=== PATIENT | female | born 1945 | race Caucasian/White ===

== ENCOUNTER → 2018-08-12 | Outpatient (CLI) | payer OTHER ==
[~2018-08-12] MED LIST: ALBU2.5V5 NEB; ALBU2.5V8 INH; ASCO500T2 PO; BREO ELLIPTA 21 EACH IH; CALC600T4 PO; CYAN-25 PO; CYCL10TA2 PO; DICL50TA2 PO; DICY10CA3 PO; DOCU50CA9 PO; ERGO500027 PO; ESTR2TAB PO; HYDR-3164 PO; LACT1CAP29 PO; LEVO75TA5 PO; LORA0.5T PO; OXYC1TAB15 PO; POTA10TA12 PO; PROC10TA57 PO; RANI-376 PO; SIME125C PO; TRIA1TAB3 PO; ZOLP10TA PO
--- NOTE | 2018-08-12 17:36 | RAD ---
EXAM: Lateral neutral, lateral flexion and lateral extension views of the lumbar spine of the lumbar spine DATE: 08/12/2018 3:26 PM INDICATION: SPONDYLOLISTHESIS, LOW BACK PAIN COMPARISON: No Prior FINDINGS: For the purposes of this report, there are 5 lumbar-type vertebral bodies, although this is not confirmed as no AP view is available. On the neutral view there is approximately 7 mm anterolisthesis of L4 on L5. On the minimal range of motion on the flexion/extension images, there is 7 mm anterolisthesis of L4 on L5 on the extension image and 8 mm anterolisthesis of L4 on L5 on the flexion image. Straightening of the normal lumbar lordosis. Severe L2-3 intervertebral disc height loss with associated endplate sclerosis and osteophytes. Moderate to severe disc height loss at L3-4, L4-5 and L5-S1. Atherosclerotic vascular calcifications are seen. IMPRESSION: Anterolisthesis of L4 on L5 without dynamic instability on the minimal range of motion provided. Electronically signed by: Otis Ly MD (08/12/2018 5:31 PM) [facility] [place]
== END | disposition home or self-care (01) ==
LOC: RAD 14:59
PROVIDERS: ATTEND Neurological Surgery
DX: M43.16 Spondylolisthesis, lumbar region (principal); M25.78 Osteophyte, vertebrae; I70.0 Atherosclerosis of aorta
CPT/HCPCS: 72100

== ENCOUNTER → 2018-09-01 | Outpatient (CLI) | payer OTHER ==
[~2018-09-01] MED LIST changes: -CYAN-25 PO; +CYAN10005 PO; -OXYC1TAB15 PO; -RANI-376 PO; +RANI150T21 PO
--- NOTE | 2018-09-01 16:27 | EKG ---
[facility] [address] [place] [address] Test Date: 2018-09-01 Test Time: 16:10:01 Pat Name: JOHNATHON CHAWLA Department: Patient ID: [id number] Room: Gender: F Monitoring And Evaluation Advisor: [facility] : 1945 Requested By: AUNDREA LAZARO Order Number: [id number] Reading MD: Philipp Rubio MD Measurements Intervals [place] Rate: 97 P: 47 FL: 140 QRS: -10 QRSD: 74 T: 44 QT: 342 QTc: 438 Interpretive Statements SINUS RHYTHM Electronically Signed On 09-02-2018 10:48:49 [employer] by Philipp Rubio MD
== END | disposition home or self-care (01) ==
LOC: SURGPAT 13:34
PROVIDERS: ATTEND Neurological Surgery
DX: Z01.818 Encounter for other preprocedural examination (principal); M48.062 Spinal stenosis, lumbar region with neurogenic claudication; M54.16 Radiculopathy, lumbar region; M43.16 Spondylolisthesis, lumbar region
CPT/HCPCS: 36415; 87641; 93005

== ENCOUNTER 2018-10-09 07:38 | Day surgery (SDC) | payer OTHER ==
--- NOTE | 2018-10-07 12:15 | PREOP HP ---
DATE OF SERVICE: 10/09/2018 HISTORY OF PRESENT ILLNESS: The patient is a pleasant 72-year-old who is having difficulty with low back pain which can become very severe and increased with standing and activities. Along with this, she notices pain in the left buttock and left hip region, which radiated down the posterolateral thigh and anterolateral leg on the left. This problem has been present for years, but it has been worsening significantly. She says the pain can reach a 10/10. Standing, walking and activities increase her pain. Sitting helps give her relief. She has been taking [place] and Flexeril. She has seen a chiropractor in the past as well as had epidural steroid injections on 2 occasions, most recently in 2017. PAST MEDICAL HISTORY: Anemia, arthritis, asthma, COPD, cold sores and fever blisters, emphysema, headaches and migraines, head and neck injury, hypertension, kidney disease, lung disease, RA, shingles, stomach and intestinal disease, tonsillitis, trauma, fibromyalgia. PAST SURGICAL HISTORY: Tonsillectomy in 1961, breast augmentation in 1977, child in 1967 and 1969, colonoscopy in 2007 and hysterectomy in 2008. FAMILY HISTORY: Alzheimer disease, aneurysm, diabetes, heart problems and disease, hypertension. SOCIAL HISTORY: . Retired. Rarely exercises. Denies substance abuse. Denies tobacco use. Drinks alcohol occasionally. Drinks coffee, tea and soda. ALLERGIES: PENICILLIN AND SULFA. CURRENT MEDICATIONS: Levothyroxine, triamterene, estradiol, diclofenac, vitamin D, potassium chloride, Zantac, Breo Ellipta, lorazepam, [place], cyclobenzaprine, Ambien, Compazine, vitamin C, vitamin B12, calcium, Gas-X, stool softener, fish oil, probiotic. REVIEW OF SYSTEMS: A 12-point review of systems was obtained and is noncontributory except for that mentioned above. PHYSICAL EXAMINATION: NEUROSURGERY EXAMINATION: GENERAL APPEARANCE: Alert, pleasant, no acute distress. HEAD: Normocephalic and atraumatic. SKIN: Warm and dry. MUSCULOSKELETAL: Lumbar paraspinal muscle bulk is normal, restricted range of motion of the lumbar spine, hwnd-bo-avbqjsal tenderness of lower lumbar spine with palpation, normal range of motion of the lower extremities bilaterally. EXTREMITIES: No clubbing, cyanosis or edema. NEUROLOGIC: Alert and oriented x 3. Normal recent and remote memory. Muscle strength 5/5 in bilateral lower extremities. Sensory was intact to light touch in bilateral lower extremities. Reflexes are present and symmetric in the lower extremities bilaterally, negative straight leg raising bilaterally, normal gait. IMAGING: I reviewed a lumbar MRI scan. On that study, there is grade 1 anterolisthesis at L4-L5 along with moderately severe stenosis at that level. On standing and flexion, extension plain films, the grade 1 spondylolisthesis is increased, but does not show dynamic motion on flexion and extension. ASSESSMENT/ PLAN: The patient has a grade 1 anterolisthesis at L4-L5 along with severe stenosis. She will require a wide laminectomy with removal of at least 50% or more of the facet to fully decompress the canal. Based on the large grade 1 anterolisthesis, even plane standing flexion and extension x-rays would combine her decompression with instrumented fusion as well as anterior diskectomy and interbody fusion. I did discuss this with her including the technique, rationale and risks as well as expected postoperative course. She understands. She would like to go ahead. We will make the arrangements. AUNDREA LAZARO MD DR: JERONIMO/sina JOB#: [id number] / [id number] [place]
[~2018-10-09] VITALS: Ht 160 cm; Wt 72.6 kg
[~2018-10-09 07:38] MED LIST changes: +BACITRACIN 50,000 UNIT in IV NORMAL SALINE 1000ML BAG 1,000 ML IR ONE; +BUPIVAC MPF-EPI 0.5%-1:200000 30 ML VIAL. ONE; +GELATIN SPONGE SIZE 100. ONE; +HYDROmorphone 2 MG/ML VIAL IV PRN; +IV RINGERS,LACTATED 1000ML 1,000 ML IV SCH; +KETOROLAC 60 MG/2 ML INJ FOR OR. ONE; +LIDOCAINE 1% PF 2 ML VIAL. ID PRN; +MORPHINE SULFATE 2 MG/ML VIAL. IV PRN; +ONDANSETRON PF 4 MG/2 ML VIAL. IV PRN; +PROCHLORPERAZINE 10 MG/2 ML VIAL. IV PRN; +RANI-376 PO; -RANI150T21 PO; +THROMBIN TOPICAL 20,000 UNIT SPRAY.SYRN KIT TP ONE; +VANCOMYCIN 1GM IVPB FOR OMNI 250 ML IV PRN; +fentaNYL PF VIAL 100 MCG/2 ML VIAL IV PRN
[2018-10-09] MEDS ORDERED: PROPOFOL 20 ML IV ONE (07:47)
[2018-10-09] MEDS ORDERED: ONDANSETRON PF 4 MG/2 ML VIAL. ONE (07:47)
[2018-10-09] MEDS ORDERED: LIDOCAINE 2% PF 5 ML VIAL. ONE (07:47)
[2018-10-09] MEDS ORDERED: PROPOFOL 0 ML IV ONE (07:47)
[2018-10-09] MEDS ORDERED: FAMOTIDINE 20 MG/2 ML VIAL ONE (07:47)
[2018-10-09] MEDS ORDERED: DEXAMETHASONE SOD PHOS 20 MG/5 ML VIAL. ONE (07:47)
[2018-10-09] MEDS ORDERED: diphenhydrAMINE 50 MG/ML VIAL ONE (08:25)
[2018-10-09] MEDS ORDERED: KETAMINE HCL IN NACL, ISO-OSM 50 MG/5 ML SYRINGE ONE (08:30)
[2018-10-09] MEDS ORDERED: GLYCOPYRROLATE 1 MG/5 ML VIAL. ONE (08:33)
[2018-10-09] MEDS ORDERED: NEOSTIGMINE 10 MG/10 ML VIAL. ONE (08:33)
[2018-10-09 08:40] VITALS: BP 195/80
[2018-10-09] MEDS ORDERED: DESFLURANE 16 TO 30 MINUTES. IH ONE (08:41)
[2018-10-09 09:01] LABS: BASO # 0.2 x10^3/uL (0.0-0.2); BASO % 1 % (0-3); EOS # 0.5 x10^3/uL (0.0-0.7); EOS % 4 % (0-3); HEMATOCRIT 35.7 % (36.0-47.0); HEMOGLOBIN 11.9 g/dL (12.0-15.5); LYMPH % 30 % (24-48); MEAN CORPUSCULAR HEMOGLOBIN 29 pg (25-35); MEAN CORPUSCULAR HGB CONC 33 g/dL (31-37); MEAN CORPUSCULAR VOLUME 89 fL (79-100); MONO # 1.8 x10^3/uL (0.0-1.1); MONO % 13 % (0-9); NEUT # 7.1 x10^3uL (1.8-7.7); NEUT % 52 % (31-73); PLATELET COUNT 355 x10^3/uL (140-400); RED BLOOD COUNT 4.03 x10^6/uL (3.50-5.40); WHITE BLOOD COUNT 13.5 x10^3/uL (4.0-11.0)
[2018-10-09] MEDS ORDERED: REMIFENTANIL 2 MG VIAL. IV ONE (09:28)
[2018-10-09] MEDS ORDERED: MIDAZOLAM HCL/PF 2 MG/2 ML VIAL. ONE (09:28)
[2018-10-09] MEDS ORDERED: fentaNYL PF VIAL 100 MCG/2 ML VIAL ONE (09:28)
[2018-10-09] MEDS ORDERED: ROCURONIUM 50 MG/5 ML VIAL. ONE (09:28)
[2018-10-09] MEDS ORDERED: MIDAZOLAM HCL/PF 2 MG/2 ML VIAL. IV ONE (09:30)
--- NOTE | 2018-10-09 09:30 | RAD ---
CT of the lumbar spine without contrast, 10/09/2018: HISTORY: Lumbar stenosis, neurogenic claudication, BrainLab study Noncontrast scans were obtained with multiplanar reconstructions produced. The data was transferred to the operating room to aid in the patient's stereotactically guided surgery. The following findings are delineated: 1. There is a mild left convexity lumbar scoliosis. No fracture or destructive bony lesion is seen. 2. At L1-2 the central spinal canal and neural foramina are well-maintained. 3. At L2-3 there is extensive disc space narrowing with endplate sclerosis and marginal spurring. There are degenerative changes involving the facet joints with posterior ligamentous thickening. There is mild posterior disc bulging. The combination of findings is causing mild central spinal stenosis 4. There is moderate degenerative disc disease at L3-4. There is moderate posterior marginal spurring and disc bulging. There is moderate posterior ligamentous thickening related to facet joint arthropathy. The combination of findings is causing moderate central spinal stenosis with the thecal sac measuring 5-6 mm in AP diameter at the midline. There is mild right foraminal stenosis. 4. At L4-5 there is extensive facet joint arthropathy with an associated grade 1 anterolisthesis. There is moderate degenerative disc disease with a vacuum disc phenomena. There is moderate broad-based posterior disc bulging. The combination of findings is causing moderate to severe central spinal stenosis as well as moderate bilateral foraminal encroachment, worse on the left. 5. At L5-S1 there is also severe degenerative disc disease with a vacuum disc phenomena. There is moderate posterior disc bulging and mild marginal spurring which in conjunction with facet joint arthropathy is producing moderate central spinal stenosis and mild to moderate bilateral foraminal encroachment. 6. Moderate aortoiliac calcific plaquing is present. Electronically signed by: Tai Mclean MD (10/09/2018 9:27 AM) [facility]
== END 2018-10-09 10:30 | disposition home or self-care (01) ==
LOC: OPSVCIP 07:38 → OPSVCOP 07:38 → UNDOADMIN 07:38 → EDSTATUS 10:30 → OPSVCOP 10:30
PROVIDERS: ATTEND Neurological Surgery
DX: M48.062 Spinal stenosis, lumbar region with neurogenic claudication (principal); M51.16 Intervertebral disc disorders with radiculopathy, lumbar region; I70.1 Atherosclerosis of renal artery; M41.86 Other forms of scoliosis, lumbar region; Z88.0 Allergy status to penicillin; Z88.2 Allergy status to sulfonamides; Z88.1 Allergy status to other antibiotic agents; Z88.5 Allergy status to narcotic agent; Z91.041 Radiographic dye allergy status; D64.9 Anemia, unspecified; M19.90 Unspecified osteoarthritis, unspecified site; J43.9 Emphysema, unspecified; G43.909 Migraine, unspecified, not intractable, without status migrainosus; M79.7 Fibromyalgia; I10 Essential (primary) hypertension; Z90.710 Acquired absence of both cervix and uterus; Z98.890 Other specified postprocedural states; Z83.3 Family history of diabetes mellitus; Z82.49 Family history of ischemic heart disease and other diseases of the circulatory system; Z82.0 Family history of epilepsy and other diseases of the nervous system; Z72.89 Other problems related to lifestyle; Z79.899 Other long term (current) drug therapy
CPT/HCPCS: 36415; 72131; 85025; 86850; 86900; 86901; J1100; J1885; J2704; J3490; J1200; J2001; J2250; J2405; J2710; J3010; J7030; J7120

== ENCOUNTER → 2018-11-24 | Outpatient (CLI) | payer OTHER ==
[~2018-11-24] MED LIST changes: -BACITRACIN 50,000 UNIT in IV NORMAL SALINE 1000ML BAG 1,000 ML IR ONE; -BUPIVAC MPF-EPI 0.5%-1:200000 30 ML VIAL. ONE; -GELATIN SPONGE SIZE 100. ONE; -HYDROmorphone 2 MG/ML VIAL IV PRN; -IV RINGERS,LACTATED 1000ML 1,000 ML IV SCH; -KETOROLAC 60 MG/2 ML INJ FOR OR. ONE; -LIDOCAINE 1% PF 2 ML VIAL. ID PRN; -MORPHINE SULFATE 2 MG/ML VIAL. IV PRN; -ONDANSETRON PF 4 MG/2 ML VIAL. IV PRN; +OXYC1TAB15 PO; -PROCHLORPERAZINE 10 MG/2 ML VIAL. IV PRN; -THROMBIN TOPICAL 20,000 UNIT SPRAY.SYRN KIT TP ONE; -VANCOMYCIN 1GM IVPB FOR OMNI 250 ML IV PRN; -fentaNYL PF VIAL 100 MCG/2 ML VIAL IV PRN
== END | disposition home or self-care (01) ==
LOC: SURGPAT 13:39
PROVIDERS: ATTEND Neurological Surgery
DX: Z01.818 Encounter for other preprocedural examination (principal); M48.062 Spinal stenosis, lumbar region with neurogenic claudication; M43.16 Spondylolisthesis, lumbar region; M54.16 Radiculopathy, lumbar region
CPT/HCPCS: 36415; 87641

== ENCOUNTER 2018-12-01 08:08 | Inpatient (IN) | payer OTHER ==
--- NOTE | 2018-11-29 22:45 | PREOP HP ---
DATE OF SURGERY: 12/01/2018. HISTORY OF PRESENT ILLNESS: The patient is a pleasant 72-year-old female who is having difficulty with low back pain, which can become very severe and increased with standing and activities. Along with this, she has noticed pain in the left buttock and left hip region, which radiates down the posterolateral thigh and anterolateral leg on the left. The problem has been present for years, but it has been worsening significantly. She says the pain can reach a 10/10. Standing and walking and activities increase her pain. Sitting helps give her relief. She has been taking [place] and Flexeril. She has seen a chiropractor in the past as well, has had epidural steroid injections on 2 occasions, most recently 2017. PAST MEDICAL HISTORY: Anemia, arthritis, asthma, COPD, cold sores and fever blisters, emphysema, headaches, migraines, head or neck injury, hypertension, kidney disease, lung disease, RA, shingles, stomach and intestinal disease, tonsillitis, trauma, fibromyalgia. PAST SURGICAL HISTORY: Tonsillectomy in 1961, breast augmentation in 1977. Child 1959 and 1969. Colonoscopy in 2007, hysterectomy in 2008. FAMILY HISTORY: Alzheimer disease, aneurysm, diabetes, heart problems and disease, hypertension. SOCIAL HISTORY: She is . Retired. Rarely exercises. Denies substance abuse. Denies tobacco use. Drinks alcohol occasionally. Drinks coffee and tea daily. ALLERGIES: PENICILLIN AND SULFA. CURRENT MEDICATIONS: Levothyroxine, triamterene, estradiol, diclofenac, vitamin D, potassium chloride, Zantac, dicyclomine, Breo Ellipta, lorazepam, [place], cyclobenzaprine, Ambien, Compazine, vitamin C, vitamin B12, calcium, Gas-X, stool softener, fish oil, probiotic. REVIEW OF SYSTEMS: A 12-point review of systems was obtained and is noncontributory except for that mentioned above. PHYSICAL EXAMINATION: NEUROSURGERY EXAMINATION: GENERAL APPEARANCE: Alert, pleasant, in no acute distress. HEAD: Normocephalic and atraumatic. MUSCULOSKELETAL: Lumbar paraspinal muscle bulk is normal, restricted range of motion of the lower lumbar spine, ybpy-kr-xacbqwlk tenderness of lower lumbar spine with palpation, normal range of motion of the lower extremities bilaterally. EXTREMITIES: No clubbing, cyanosis or edema. NEUROLOGIC: Alert and oriented x 3, normal recent and remote memory, strength 5/5 in bilateral lower extremities. Sensory was intact to light touch in bilateral lower extremities. Reflexes were present and symmetric in lower extremities bilaterally, negative straight leg raising bilaterally, normal gait. IMAGING: I reviewed a lumbar MRI scan. On that study, there is grade 1 anterolisthesis at L4-L5, along with moderately severe stenosis at that level. On standing flexion and extension plain films, the grade 1 spondylolisthesis is increased, but does not show dynamic motion on flexion and extension. ASSESSMENT/ PLAN: The patient has a grade 1 anterolisthesis at L4-L5 along with severe stenosis. She will require a wide laminectomy with removal of at least 50% or more of the facet to fully decompress the canal. There is a large grade 1 anterolisthesis seen on the plain standing flexion and extension x-rays. I would combine her decompression with instrumented fusion as well as anterior discectomy and interbody fusion. I did discuss this with her including the technique, rationale, risks and expected postoperative course. She understands and would like to proceed. We will make the arrangements. AUNDREA LAZARO MD DR: JERONIMO/sina JOB#: [id number] / [id number] [place]
[~2018-12-01] VITALS: Ht 160 cm; Wt 72.6 kg
[2018-12-01] VITALS (8 sets, daily range): BP systolic 118–149; BP diastolic 51–83
[~2018-12-01 08:08] MED LIST changes: +BACITRACIN 50,000 UNIT in IV NORMAL SALINE 1000ML BAG 1,000 ML IRR ONE; +BUPIVAC MPF-EPI 0.5%-1:200000 30 ML VIAL. ONE; +GELATIN SPONGE SIZE 100. ONE; +IV RINGERS,LACTATED 1000ML 1,000 ML IV SCH; +KETOROLAC 60 MG/2 ML INJ FOR OR. ONE; +LIDOCAINE 1% PF 2 ML VIAL. ID PRN; +ONDANSETRON PF 4 MG/2 ML VIAL. IV PRN; -OXYC1TAB15 PO; +THROMBIN TOPICAL 20,000 UNIT SPRAY.SYRN KIT TP ONE; +VANCOMYCIN 1GM IVPB FOR OMNI 250 ML IV PRN; +fentaNYL PF VIAL 100 MCG/2 ML VIAL IV PRN
[2018-12-01] MEDS ORDERED: PROPOFOL 50 ML IV ONE ×2 (09:30→12:56)
[2018-12-01] MEDS ORDERED: LIDOCAINE 2% PF 5 ML VIAL. ONE (09:30)
[2018-12-01] MEDS ORDERED: fentaNYL PF VIAL 100 MCG/2 ML VIAL ONE (09:30)
[2018-12-01] MEDS ORDERED: PROPOFOL 20 ML IV ONE (09:30)
[2018-12-01] MEDS ORDERED: SUCCINYLCHOLINE 200 MG/10 ML VIAL. ONE (09:31)
[2018-12-01] MEDS ORDERED: REMIFENTANIL 2 MG VIAL. IV ONE (09:31)
[2018-12-01] MEDS ORDERED: ROCURONIUM 50 MG/5 ML VIAL. ONE (09:31)
[2018-12-01] MEDS ORDERED: 0.9 % SODIUM CHLORIDE 20 ML VIAL. IJ ONE (09:32)
[2018-12-01 09:34] LABS: PROTHROMBIN TIME PATIENT 13.7 SEC (11.7-14.0)
[2018-12-01 09:53] LABS: BASO # 0.1 x10^3/uL (0.0-0.2); BASO % 1 % (0-3); EOS # 0.5 x10^3/uL (0.0-0.7); EOS % 5 % (0-3); HEMOGLOBIN 11.3 g/dL (12.0-15.5); LYMPH # 3.2 x10^3/uL (1.0-4.8); LYMPH % 30 % (24-48); MEAN CORPUSCULAR HEMOGLOBIN 31 pg (25-35); MEAN CORPUSCULAR HGB CONC 34 g/dL (31-37); MEAN CORPUSCULAR VOLUME 90 fL (79-100); MONO # 1.7 x10^3/uL (0.0-1.1); MONO % 16 % (0-9); NEUT # 5.1 x10^3uL (1.8-7.7); NEUT % 48 % (31-73); PLATELET COUNT 315 x10^3/uL (140-400); RED BLOOD COUNT 3.65 x10^6/uL (3.50-5.40); RED CELL DISTRIBUTION WIDTH 12.9 % (11.5-14.5); WHITE BLOOD COUNT 10.6 x10^3/uL (4.0-11.0)
[2018-12-01] MEDS ORDERED: MIDAZOLAM HCL/PF 2 MG/2 ML VIAL. ONE (10:59)
[2018-12-01] MEDS ORDERED: DESFLURANE > 120 MINUTES IH ONE (11:12)
[2018-12-01] MEDS ORDERED: DEXAMETHASONE SOD PHOS 20 MG/5 ML VIAL. ONE (11:12)
[2018-12-01] MEDS ORDERED: PHENYLEPHRINE in 0.9% NACL PF 1 MG/10 ML SYRINGE. IV ONE (12:27)
[2018-12-01] MEDS ORDERED: ONDANSETRON PF 4 MG/2 ML VIAL. ONE (13:02)
[2018-12-01] MEDS ORDERED: 0.9 % SODIUM CHLORIDE 10 ML DISP.SYRIN. IV PRN (15:45)
[2018-12-01] MEDS ORDERED: ONDANSETRON PF 4 MG/2 ML VIAL. IV PRN (15:45)
[2018-12-01] MEDS ORDERED: ALBUTEROL SULFATE 2.5 MG/3 ML NEBU. INH PRN (15:45)
[2018-12-01] MEDS ORDERED: ALBUTEROL SULFATE 2.5 MG/3 ML NEBU. NEB PRN (15:45)
[2018-12-01] MEDS ORDERED: CALCIUM CARBONATE 500 MG TAB.CHEW PO PRN (15:45)
[2018-12-01] MEDS ORDERED: ACETAMINOPHEN 325 MG TABLET. PO PRN (15:45)
[2018-12-01] MEDS ORDERED: diphenhydrAMINE HCL 25 MG CAPSULE PO PRN (15:45)
[2018-12-01] MEDS ORDERED: MAGNESIUM HYDROXIDE 2,400 MG/30 ML ORAL.SUSP. PO PRN (15:45)
[2018-12-01] MEDS ORDERED: MAG HYDROX/ALUMINUM HYD/SIMETH 30 ML ORAL.SUSP PO PRN (15:45)
[2018-12-01] MEDS ORDERED: NALOXONE 0.4 MG/ML VIAL. IV PRN (15:45)
[2018-12-01] MEDS ORDERED: ZOLPIDEM 5 MG TABLET. PO PRN (16:00)
[2018-12-01] MEDS ORDERED: PROCHLORPERAZINE 5 MG TABLET. PO PRN (16:00)
[2018-12-01] MEDS ORDERED: SIMETHICONE 80 MG TAB.CHEW PO PRN (16:00)
[2018-12-01] MEDS: ALBUTEROL SULFATE 2.5 MG/3 ML NEBU. NEB SCH ×2 (16:00→19:50)
[2018-12-01] MEDS: PROCHLORPERAZINE 10 MG/2 ML VIAL. IV PRN ×2 (16:05→16:20)
[2018-12-01] MEDS: fentaNYL PF VIAL 100 MCG/2 ML VIAL IV PRN ×6 (16:05→20:35)
[2018-12-01] MEDS: MORPHINE SULFATE 2 MG/ML VIAL. IV PRN ×2 (16:05→16:20)
[2018-12-01] MEDS ORDERED: NEOMY/BACITR/POLYMYXIN OINT PACKET. TP ONE ×2 (16:31→21:00)
[2018-12-01] MEDS: HYDROmorphone 2 MG/ML VIAL IV PRN ×2 (16:35→16:52)
[2018-12-01] MEDS ORDERED: POTASSIUM CL 20MEQ D5-0.45NACL 1,000 ML IV SCH (17:00)
--- NOTE | 2018-12-01 19:07 | OP ---
DATE OF SURGERY: 12/01/2018 PREOPERATIVE DIAGNOSES: Grade 1 spondylolisthesis with severe lumbar spinal stenosis, L4-L5. POSTOPERATIVE DIAGNOSES: Grade 1 spondylolisthesis with severe lumbar spinal stenosis, L4-L5. OPERATION PERFORMED: 1. Lumbar laminectomy, L4-L5 with decompression of dura and nerve root. 2. Posterior instrumentation, L4-L5. 3. Posterolateral fusion L4-L5 with allograft and autograft bone. 4. Anterior lumbar discectomy L4-L5 from an anterolateral oblique approach. 5. Placement of interbody fusion cage with allograft and autograft bone, L4-L5. The operation was done with EMG monitoring, fluoroscopy, and microscopic dissection. SURGEON: Pedro Lazaro M.D. REDUCING SALON ATTENDANT: Yvette Lundberg APRN assisted with the surgery. She assisted with the decompression and the anterior discectomy and fusion. OPERATIVE INDICATIONS: The patient is a pleasant 72-year-old who developed intractable back and left greater than right leg pain and was found to have spondylolisthesis observed on an MRI scan, but which was a significant grade 1 on standing. She was going to require a wide laminectomy plus an instrumented lumbar fusion to prevent worsening of her spondylolisthesis. I did speak with her about the surgery and the risks. I spoke with her about the importance of the fusion. I outlined the technique of the operation, the possibility of nerve root injury, possibility of nonunion or migration of cage, etc. She understood very well the surgery and wished to go ahead. DESCRIPTION OF PROCEDURE: Following general endotracheal anesthesia, the patient was positioned prone on the Roman table. The lumbar region prepped and draped in standard fashion. GREGORIO hose and AV impulse boots were applied for DVT prophylaxis. The microscope was draped. Fluoroscopy was draped and brought into the field. Monitoring was established. Vancomycin 1 gram was given prior to initiation of surgery. Using fluoroscopic guidance, the pins were placed into the right iliac crest and the Myagi system was initialized. I then made a midline posterior incision extending from superior L4 to superior L5. I dissected down skin and subcutaneous tissue and reflected the paraspinal muscles laterally. I placed a self-retaining retractor on the right and exposed the pedicles and the transverse processes and I drilled into the posterior aspect of the pedicle at L4 and L5 and in the standard fashion, passed the black ball followed by the ball tip probe, followed by tap, followed by screw placement at L4 and L5. During this time, I also aspirated 20 mL of bone marrow and I mixed this with allograft bone. I drilled the lateral pedicle, facet, as well as the transverse processes and packed allograft bone into the right lateral gutter and then went to the left side, placing a self-retaining retractor. At this point, I brought out the high speed air drill and drilled the spinous processes and then drilled the lamina from both the left and the right side, trimmed away the very thickened ligamentum flavum, which was significantly scarred to the underlying dura, but which I was able to gently create a plane and free and peel away from the laminectomy. I did mixed the autograft bone with allograft bone. I excoriated the transverse processes and lateral facets and I packed bone into that location. During this time, I also drilled into the posterior pedicles of L4 and L5 and in a similar fashion, passed the black ball followed by ball tip probe, followed by tap, followed by screw placement. I used the Innovasis system with 40 mm screws in L5. The rods were placed and nuts were placed and I did distract slightly at L4-L5 on the left and then I tilted the bed away from me and performed the anterior operation. I made an incision in the flank and I passed BrainLAB with a sleeve down to dock at the lateral attachment of the pedicle of L5 with the vertebral body. I then moved superiorly to the disc space and slightly medially to assure myself that I was free of the L4 root. I passed the K-wire after I had ascertained that the disc was not in proximity and then I passed a dilator followed by the working channel. I performed discectomy with endplate scrapers, pituitary rongeurs and disc dominga. I then placed allograft and autograft bone into the disc space followed by a 9 trial, which I felt fit very, very well and then used the 9 cage, which was packed with allograft bone and gently slipped this down the path avoiding the lateral root and fitted into the disc space tapping it gently into secure position. I released the cage and then I tilted the patient back and then posteriorly, I compressed slightly the jayla screw assembly on the left to ensure that there will be no cage migration. I irrigated copiously. Then, I did perform sequential torquing of all the screws and assured myself of excellent hemostasis. I irrigated copiously. I closed the wound in layers with absorbable suture and the skin was closed with 4-0 subcuticular stitch. The operation went very well and the patient awakened uneventfully. I was quite pleased with the surgery. PEDRO LAZARO MD DR: JERONIMO/sina JOB#: [id number] / [id number] [place]
--- NOTE | 2018-12-01 19:29 | NUR ---
arrived to the floor at 1730. several family members at bedside. she is rating her pain a"7". she is able to move all extremities without difficulty. she has good pulses, sensation bilateral lower extremities. dressing to her back (3) clean and dry.
[2018-12-01] MEDS: BUDESONIDE 0.5 MG/2 ML NEBU. NEB SCH (19:50)
[2018-12-01] MEDS: CYCLOBENZAPRINE 10 MG TABLET. PO SCH (20:38)
[2018-12-01] MEDS: DOCUSATE SODIUM 100 MG CAPSULE. PO SCH (20:38)
[2018-12-01] MEDS: LORazepam 0.5 MG TABLET PO SCH (20:38)
--- NOTE | 2018-12-01 21:00 | NUR ---
Patient A&O, [place]. Has facial abrasion to right cheek. Also has redness/tenderness across chest. Refuses Cpap. Denies numbness and tingling of fingers and left groin/leg. Surgical dressing has scant drainage present.
[2018-12-01] MEDS: oxyCODONE/APAP 5/325 1 TAB TABLET PO PRN (21:30)
--- NOTE | 2018-12-01 22:30 | NUR ---
New IV started LFA, 20g on 1st attempt. Addendum: 12/02/18 at 0041 by STEPHENIE BENNETT RN Amended: Links added.
[2018-12-01] MEDS ORDERED: VANCOMYCIN 1 GM in IV NORMAL SALINE 250ML 250 ML IV ONE (23:00)
[2018-12-02] MEDS: fentaNYL PF VIAL 100 MCG/2 ML VIAL IV PRN ×2 (00:11→05:41)
[2018-12-02] MEDS: oxyCODONE/APAP 5/325 1 TAB TABLET PO PRN ×6 (02:05→23:02)
--- NOTE | 2018-12-02 02:12 | NUR ---
Patient awake, moaning and c/o being "miserable." Percocet 2 given. Refuses ice-"it makes me seize up." Refused GREGORIO hose and LEELA pumps. Spouse at bedside.
[2018-12-02 03:00] VITALS: BP 108/48
[2018-12-02 06:32] VITALS: BP 103/46
[2018-12-02] MEDS: LEVOTHYROXINE 75 MCG TABLET PO SCH (07:42)
[2018-12-02 08:06] VITALS: BP 125/54
[2018-12-02] MEDS: CYANOCOBALAMIN (VITAMIN B-12) 1,000 MCG TABLET. PO SCH (08:08)
[2018-12-02] MEDS: LORazepam 0.5 MG TABLET PO SCH ×3 (08:08→20:27)
[2018-12-02] MEDS: ESTRADIOL 1 MG TABLET. PO SCH (08:08)
[2018-12-02] MEDS: LACTOBACILLUS RHAMNOSUS GG 1 CAPSULE. PO SCH (08:08)
[2018-12-02] MEDS: DOCUSATE SODIUM 100 MG CAPSULE. PO SCH ×2 (08:08→20:27)
[2018-12-02] MEDS: POTASSIUM CHLORIDE 10 MEQ TABLET.ER. PO SCH (08:09)
[2018-12-02] MEDS: CALCIUM CARBONATE 500 MG TABLET PO SCH (08:09)
[2018-12-02] MEDS: ASCORBIC ACID 500 MG TABLET PO SCH (08:09)
[2018-12-02] MEDS: CYCLOBENZAPRINE 10 MG TABLET. PO SCH ×3 (08:09→20:27)
[2018-12-02] MEDS: TRIAMTERENE/HCTZ 37.5/25MG TABLET. PO SCH (08:13)
--- NOTE | 2018-12-02 08:14 | NUR ---
BP 125/54, P 93, Mazxide held
[2018-12-02] MEDS: ALBUTEROL SULFATE 2.5 MG/3 ML NEBU. NEB SCH ×4 (08:24→21:01)
[2018-12-02] MEDS: BUDESONIDE 0.5 MG/2 ML NEBU. NEB SCH ×2 (08:24→21:01)
--- NOTE | 2018-12-02 08:41 | NUR ---
Offered ice pack to back per protocol for pain management refused, turn to left side with pillow placed to back & between legs
[2018-12-02] MEDS ORDERED: NON FORMULARY ITEM (Fluticasone/Vilanterol (Breo Ellipta 200-25 Mcg INH) 1 PUFF) IH SCH (09:00)
[2018-12-02 10:54] VITALS: BP 126/49
--- NOTE | 2018-12-02 13:08 | PDOC ---
PROGRESS NOTES Subjective Subjective POD #1 up in chair eating lunch back/ incisional pain, controlled with medication has ambulated with PT Objective Objective Vital Signs Date Time Temp Pulse Resp B/P (MAP) Pulse Ox O2 Delivery O2 Flow Rate FiO2 12/02/18 12:17 Room Air 12/02/18 10:54 98.3 102 20 126/49 (74) 94 98.3 12/01/18 19:23 2.0 Intake and Output 12/02/18 07:00 Intake Total 2235 ml Output Total 425 ml Balance 1810 ml Intake Oral 140 ml IV Total 1750 ml Blood Product IV Normal Saline Flush 345 ml Output Urine Total 325 ml Stool Total 0 ml Estimated Blood Loss 100 ml Physical Exam General: Alert, Oriented X3, Cooperative MUSCULOSKELETAL: Other ([place], LSO on) Neuro: Normal speech, Sensation intact Skin: Other (dressing intact) Plan Plan of Care encouraged increased activity as tolerated encouraged PO pain medication PT will likely dc in AM Comment Review of Relevant I have reviewed the following items juan (where applicable) has been applied. Labs Laboratory Tests Test 12/01/18 08:45 White Blood Count 10.6 x10^3/uL (4.0-11.0) Red Blood Count 3.65 x10^6/uL (3.50-5.40) Hemoglobin 11.3 g/dL (12.0-15.5) Hematocrit 33.0 % (36.0-47.0) Mean Corpuscular Volume 90 fL (79-100) Mean Corpuscular Hemoglobin 31 pg (25-35) Mean Corpuscular Hemoglobin Concent 34 g/dL (31-37) Red Cell Distribution Width 12.9 % (11.5-14.5) Platelet Count 315 x10^3/uL (140-400) Neutrophils (%) (Auto) 48 % (31-73) Lymphocytes (%) (Auto) 30 % (24-48) Monocytes (%) (Auto) 16 % (0-9) Eosinophils (%) (Auto) 5 % (0-3) Basophils (%) (Auto) 1 % (0-3) Neutrophils # (Auto) 5.1 x10^3uL (1.8-7.7) Lymphocytes # (Auto) 3.2 x10^3/uL (1.0-4.8) Monocytes # (Auto) 1.7 x10^3/uL (0.0-1.1) Eosinophils # (Auto) 0.5 x10^3/uL (0.0-0.7) Basophils # (Auto) 0.1 x10^3/uL (0.0-0.2) Prothrombin Time 13.7 SEC (11.7-14.0) Prothromb Time International Ratio 1.1 (0.8-1.1) Activated Partial Thromboplast Time 26 SEC (24-38) Medications Current Medications Ondansetron HCl (Zofran) 4 mg PRN Q6HRS PRN IV NAUSEA/VOMITING; Start 12/01/18 at 07:00; Stop 12/02/18 at 06:59; Status DC Fentanyl Citrate (Fentanyl 2ml Vial) 25 mcg PRN Q5MIN PRN IV MILD PAIN; Start 12/01/18 at 07:00; Stop 12/02/18 at 06:59; Status DC Fentanyl Citrate (Fentanyl 2ml Vial) 50 mcg PRN Q5MIN PRN IV MODERATE TO SEVERE PAIN Last administered on 12/01/18at 17:01; Start 12/01/18 at 07:00; Stop 12/02/18 at 06:59; Status DC Morphine Sulfate (Morphine Sulfate) 1 mg PRN Q10MIN PRN IV SEVERE PAIN Last administered on 12/01/18at 16:20; Start 12/01/18 at 07:00; Stop 12/02/18 at 06:59; Status DC Ringer's Solution 1,000 ml @ 30 mls/hr Q24H IV Last administered on 12/01/18at 09:02; Start 12/01/18 at 07:00; Stop 12/01/18 at 18:59; Status DC Lidocaine HCl (Xylocaine-Mpf 1% 2ml Vial) 2 ml PRN 1X PRN ID PRIOR TO IV START; Start 12/01/18 at 07:00; Stop 12/02/18 at 06:59; Status DC Hydromorphone HCl (Dilaudid) 0.5 mg PRN Q10MIN PRN IV SEV PAIN, Second choice Last administered on 12/01/18at 16:52; Start 12/01/18 at 07:00; Stop 12/02/18 at 06:59; Status DC Prochlorperazine Edisylate (Compazine) 5 mg PACU PRN PRN IV NAUSEA, MRX1 Last administered on 12/01/18at 16:20; Start 12/01/18 at 07:00; Stop 12/02/18 at 06:59; Status DC Vancomycin HCl 250 ml @ 250 mls/hr 1X PREOP PRN IV PRIOR TO PROCEDURE Last administered on 12/01/18 11:02; Start 12/01/18 at 06:00; Stop 12/01/18 at 18:00; Status DC Bacitracin 67933 unit/Sodium Chloride 1,000 ml @ 1,000 mls/hr 1X ONCE IRR Last administered on 12/01/18at 12:10; Start 12/01/18 at 06:00; Stop 12/01/18 at 06:59; Status DC Gelatin (Gelfoam Size 100) 1 each STK-MED ONCE .ROUTE Last administered on 12/01/18 12:10; Start 12/01/18 at 05:42; Stop 12/01/18 at 06:43; Status DC Bupivacaine HCl/ Epinephrine Bitart (Sensorcain-Mpf Epi 0.5%-1:[id number]) 30 ml STK-MED ONCE .ROUTE Last administered on 12/01/18at 12:10; Start 12/01/18 at 05:42; Stop 12/01/18 at 06:43; Status DC Ketorolac Tromethamine (Toradol For Or Only) 60 mg STK-MED ONCE .ROUTE Last administered on 12/01/18at 12:10; Start 12/01/18 at 05:43; Stop 12/01/18 at 06:43; Status DC Thrombin 20,000 unit STK-MED ONCE TP Last administered on 12/01/18at 12:10; Start 12/01/18 at 05:43; Stop 12/01/18 at 06:43; Status DC Propofol 20 ml @ As Directed STK-MED ONCE IV ; Start 12/01/18 at 09:30; Stop 12/01/18 at 09:31; Status DC Lidocaine HCl (Lidocaine Pf 2% Vial) 5 ml STK-MED ONCE .ROUTE ; Start 12/01/18 at 09:30; Stop 12/01/18 at 09:31; Status DC Propofol 50 ml @ As Directed STK-MED ONCE IV ; Start 12/01/18 at 09:30; Stop 12/01/18 at 09:31; Status DC Fentanyl Citrate (Fentanyl 2ml Vial) 100 mcg STK-MED ONCE .ROUTE ; Start 12/01/18 at 09:30; Stop 12/01/18 at 09:31; Status DC Succinylcholine Chloride (Anectine) 200 mg STK-MED ONCE .ROUTE ; Start 12/01/18 at 09:31; Stop 12/01/18 at 09:32; Status DC Rocuronium Webster (Zemuron) 50 mg STK-MED ONCE .ROUTE ; Start 12/01/18 at 09:31; Stop 12/01/18 at 09:32; Status DC Remifentanil HCl (Ultiva) 2 mg STK-MED ONCE IV ; Start 12/01/18 at 09:31; Stop 12/01/18 at 09:32; Status DC Sodium Chloride (SODIUM CHLORIDE 20ml) 20 ml STK-MED ONCE IJ ; Start 12/01/18 at 09:32; Stop 12/01/18 at 09:33; Status DC Midazolam HCl (Versed) 2 mg STK-MED ONCE .ROUTE ; Start 12/01/18 at 10:59; Stop 12/01/18 at 11:00; Status DC Dexamethasone Sodium Phosphate (Decadron) 20 mg STK-MED ONCE .ROUTE ; Start 12/01/18 at 11:12; Stop 12/01/18 at 11:13; Status DC Desflurane (Suprane) 90 ml STK-MED ONCE IH ; Start 12/01/18 at 11:12; Stop 12/01/18 at 11:13; Status DC Phenylephrine HCl (PHENYLEPHRINE in 0.9% NACL PF) 1 mg STK-MED ONCE IV ; Start 12/01/18 at 12:27; Stop 12/01/18 at 12:28; Status DC Propofol 50 ml @ As Directed STK-MED ONCE IV ; Start 12/01/18 at 12:56; Stop 12/01/18 at 12:57; Status DC Ondansetron HCl (Zofran) 4 mg STK-MED ONCE .ROUTE ; Start 12/01/18 at 13:02; Stop 12/01/18 at 13:03; Status DC Albuterol Sulfate (Ventolin Neb Soln) 2.5 mg PRN QID PRN NEB SHORTNESS OF BREATH; Start 12/01/18 at 15:45 Albuterol Sulfate (Ventolin Neb Soln) 8.5 mg PRN Q6HRS PRN INH SHORTNESS OF BREATH; Start 12/01/18 at 15:45; Status UNV Ascorbic Acid (Vitamin C) 500 mg DAILY PO Last administered on 12/02/18 08:09; Start 12/02/18 at 09:00 Cyanocobalamin (Vitamin B-12) 1,000 mcg DAILY PO Last administered on 12/02/18at 08:08; Start 12/02/18 at 09:00 Cyclobenzaprine HCl (Flexeril) 10 mg TID PO Last administered on 12/02/18 08:09; Start 12/01/18 at 21:00 Dicyclomine HCl (Bentyl) 10 mg PRN QID PRN PO NAUSEA; Start 12/01/18 at 15:45 Ergocalciferol (Vitamin D2) 50,000 unit WEEKLY PO ; Start 12/08/18 at 09:00 Levothyroxine Sodium (Synthroid) 75 mcg DAILYAC PO Last administered on 12/02/18at 07:42; Start 12/02/18 at 07:30 Lorazepam (Ativan) 0.5 mg TID PO Last administered on 12/02/18at 08:08; Start 12/01/18 at 21:00 Potassium Chloride (Klor-Con) 10 meq DAILY PO Last administered on 12/02/18at 08:09; Start 12/02/18 at 09:00 Triamterene/HCTZ (Maxzide 37.5/ 25mg) 1 tab DAILY PO ; Start 12/02/18 at 09:00 Calcium Carbonate/ Glycine (Oscal) 500 mg DAILY PO Last administered on 12/02/18at 08:09; Start 12/02/18 at 09:00 Estradiol (Estrace) 2 mg DAILY PO Last administered on 12/02/18 08:08; Start 12/02/18 at 09:00 Non-Formulary Medication (Fluticasone/ Vilanterol (Breo Ellipta 200-25 Mcg INH)) 1 puff DAILY IH ; Start 12/02/18 at 09:00; Status UNV Lactobacillus Rhamnosus (Culturelle) 1 cap DAILY PO Last administered on 12/02/18at 08:08; Start 12/02/18 at 09:00 Prochlorperazine Maleate (Compazine) 10 mg PRN BID PRN PO NAUSEA/VOMITING; Start 12/01/18 at 16:00 Famotidine (Pepcid) 20 mg PRN BID PRN PO HEARTBURN / GAS; Start 12/01/18 at 15:53 Simethicone (Gas-X) 80 mg PRN DAILY PRN PO GAS / BLOATING; Start 12/01/18 at 16:00 Zolpidem Tartrate (Ambien) 5 mg PRN QHS PRN PO INSOMNIA, MAY REPEAT X1; Start 12/01/18 at 16:00 Fentanyl Citrate (Fentanyl 2ml Vial) 50 mcg PRN Q2HR PRN IV PAIN Last administered on 12/02/18at 05:41; Start 12/01/18 at 15:45 Vancomycin HCl 1 gm/Sodium Chloride 250 ml @ 250 mls/hr 1X ONCE IV Last administered on 12/01/18at 22:51; Start 12/01/18 at 23:00; Stop 12/01/18 at 23:59; Status DC Acetaminophen (Tylenol) 650 mg PRN Q6HRS PRN PO MILD PAIN / TEMP; Start 12/01/18 at 15:45 Al Hydroxide/Mg Hydroxide (Mylanta Plus Xs) 30 ml PRN Q3HRS PRN PO HEARTBURN / GAS; Start 12/01/18 at 15:45 Calcium Carbonate/ Glycine (Tums) 500 mg PRN Q3HRS PRN PO INDIGESTION; Start 12/01/18 at 15:45 Diphenhydramine HCl (Benadryl) 25 mg PRN Q6HRS PRN PO ITCHING; Start 12/01/18 at 15:45 Naloxone HCl (Narcan) 0.1 mg PRN Q2MIN PRN IV ADMIN; Start 12/01/18 at 15:45 Sodium Chloride (Normal Saline Flush) 3 ml QSHIFT PRN IV AFTER MEDS AND BLOOD DRAWS; Start 12/01/18 at 15:45 Potassium Chloride/Dextrose/ Sod Cl 1,000 ml @ 75 mls/hr [id number] IV Last administered on 12/01/18at 18:19; Start 12/01/18 at 17:00; Stop 12/02/18 at 08:46; Status DC Oxycodone/ Acetaminophen (Percocet 5/325) 1 tab PRN Q4HRS PRN PO MILD PAIN, 1ST CHOICE Last administered on 12/02/18at 08:41; Start 12/01/18 at 15:45 Oxycodone/ Acetaminophen (Percocet 5/325) 2 tab PRN Q4HRS PRN PO MODERATE PAIN, SEVERE PAIN Last administered on 12/02/18at 02:05; Start 12/01/18 at 15:45 Docusate Sodium (Colace) 100 mg BID PO Last administered on 12/02/18at 08:08; Start 12/01/18 at 21:00 Magnesium Hydroxide (Milk Of Magnesia) 2,400 mg PRN Q12HR PRN PO CONSTIPATION; Start 12/01/18 at 15:45 Ondansetron HCl (Zofran) 4 mg PRN Q6HRS PRN IV NAUESA, 1ST CHOICE; Start 12/01/18 at 15:45 Budesonide (Pulmicort) 0.5 mg RTBID NEB Last administered on 12/02/18at 08:24; Start 12/01/18 at 20:00 Albuterol Sulfate (Ventolin Neb Soln) 2.5 mg RTQID NEB Last administered on 12/02/18at 12:16; Start 12/01/18 at 16:00 Neomycin/ Polymyxin/ Bacitracin (Triple Antibiotic Ointment) 1 pkt STK-MED ONCE TP ; Start 12/01/18 at 16:31; Stop 12/01/18 at 16:32; Status DC Neomycin/ Polymyxin/ Bacitracin (Triple Antibiotic Ointment) 1 pkt 1X ONCE TP Last administered on 12/01/18at 20:46; Start 12/01/18 at 21:00; Stop 12/01/18 at 21:01; Status DC Active Scripts Active Reported Proair Hfa (Albuterol Sulfate) 8.5 Gm Hfa.aer.ad 1 Puff INH PRN Q6HRS PRN Albuterol Sulfate Neb Soln (Albuterol Sulfate) 2.5 Mg/3 Ml Vial.neb 2.5 Mg NEB PRN QID PRN Compazine (Prochlorperazine Maleate) 10 Mg Tablet 10 Mg PO PRN BID PRN Gas-X (Simethicone) 125 Mg Capsule 125 Mg PO PRN DAILY PRN Ambien (Zolpidem Tartrate) 10 Mg Tablet 10 Mg PO PRN QHS PRN [place] 5-325 Tablet (Acetaminophen/Hydrocodone Bitart) 1 Each Tablet 1 Tab PO PRN QID PRN Cyclobenzaprine Hcl 10 Mg Tablet 10 Mg PO TID Lorazepam 0.5 Mg Tablet 0.5 Mg PO TID Vitamin C (Ascorbic Acid) 500 Mg Tablet 500 Mg PO DAILY Vitamin D2 (Ergocalciferol (Vitamin D2)) 50,000 Unit Capsule 50,000 Unit PO WEEKLY Stool Softener (Docusate Sodium) 50 Mg Capsule 50 Mg PO DAILY Dicyclomine Hcl 10 Mg Capsule 10 Mg PO PRN QID PRN Probiotic (Lactobacillus Combo No.10) 1 Each Capsule 1 Each PO DAILY Zantac (Ranitidine Hcl) 150 Mg Tablet 150 Mg PO PRN BID PRN Breo Ellipta 200-25 Mcg INH (Fluticasone/Vilanterol) 1 Each Blst.w.dev 1 Puff IH DAILY Diclofenac Potassium 50 Mg Tablet 75 Mg PO DAILY Estradiol 2 Mg Tablet 2 Mg PO DAILY Triamterene-Hctz 37.5-25 Mg Tb (Triamterene/Hydrochlorothiazid) 1 Each Tablet 1 Tab PO DAILY Levothyroxine Sodium 75 Mcg Tablet 75 Mcg PO DAILYAC Potassium Chloride 10 Meq Tablet.er 10 Meq PO DAILY Vitamin B-12 (Cyanocobalamin (Vitamin B-12)) 1,000 Mcg Tablet 1,000 Mcg PO DAILY Calcium (Calcium Carbonate) 600 Mg Tablet 600 Mg PO DAILY Vitals/I & O Vital Sign - Last 24 Hours 12/01/18 12/01/18 12/01/18 12/01/18 16:03 16:03 16:05 16:05 Temp 98.2 98.2 Pulse 96 Resp 20 18 18 B/P (MAP) 181/74 Pulse Ox 99 100 99 O2 Delivery Mask Simple Mask Simple Mask Simple Mask O2 Flow Rate 8 8 8.0 8.0 12/01/18 12/01/18 12/01/18 12/01/18 16:18 16:20 16:20 16:33 Pulse 64 88 Resp 18 20 18 18 B/P (MAP) 140/68 133/50 Pulse Ox 100 100 100 97 O2 Delivery Simple Mask Simple Mask Simple Mask Room Air O2 Flow Rate 8 8.0 8.0 12/01/18 12/01/18 12/01/18 12/01/18 16:35 16:39 16:48 16:52 Pulse 85 Resp 18 18 16 14 B/P (MAP) 137/54 Pulse Ox 100 96 100 100 O2 Delivery Simple Mask Room Air Nasal Cannula Nasal Cannula O2 Flow Rate 8.0 4 4.0 12/01/18 12/01/18 12/01/18 12/01/18 17:01 17:03 17:30 17:30 Temp 97.4 97.4 Pulse 74 90 Resp 16 16 18 B/P (MAP) 135/53 149/78 (101) Pulse Ox 99 99 99 O2 Delivery Nasal Cannula Nasal Cannula Nasal Cannula Nasal Cannula O2 Flow Rate 4.0 2 2.0 2 12/01/18 12/01/18 12/01/18 12/01/18 17:45 18:00 18:00 18:15 Temp 97.7 97.7 Pulse 88 89 84 Resp 18 18 18 B/P (MAP) 145/72 (96) 149/83 (105) 140/80 (100) Pulse Ox 98 98 98 O2 Delivery Nasal Cannula Nasal Cannula Room Air Nasal Cannula O2 Flow Rate 2.0 2.0 2.0 12/01/18 12/01/18 12/01/18 12/01/18 18:17 18:45 19:23 19:50 Temp 97.3 97.3 Pulse 98 Resp 16 18 B/P (MAP) 142/60 (87) Pulse Ox 95 95 96 O2 Delivery Nasal Cannula Nasal Cannula Room Air O2 Flow Rate 2.0 12/01/18 12/01/18 12/01/18 12/01/18 20:00 20:25 20:35 21:25 Temp 97.8 98.3 97.8 98.3 Pulse 100 99 Resp 20 24 18 B/P (MAP) 125/62 (83) 122/52 (75) Pulse Ox 94 94 98 O2 Delivery Room Air Room Air Room Air 12/01/18 12/01/18 12/02/18 12/02/18 21:30 22:57 00:11 02:05 Temp 98.2 98.2 Pulse 92 Resp 28 18 24 20 B/P (MAP) 118/51 (73) Pulse Ox 97 94 O2 Delivery Room Air Room Air Room Air Room Air 12/02/18 12/02/18 12/02/18 12/02/18 03:00 03:10 05:41 06:15 Temp 98.6 98.6 Pulse 95 Resp 16 16 24 20 B/P (MAP) 108/48 (68) Pulse Ox 94 O2 Delivery Room Air Room Air Room Air 12/02/18 12/02/18 12/02/18 12/02/18 06:32 07:51 08:06 08:10 Temp 98.7 98.7 Pulse 92 93 Resp 16 B/P (MAP) 103/46 (65) 125/54 (77) Pulse Ox 94 O2 Delivery Room Air Room Air Room Air 12/02/18 12/02/18 12/02/18 12/02/18 08:27 08:30 10:54 12:17 Temp 98.3 98.3 Pulse 102 Resp 20 B/P (MAP) 126/49 (74) Pulse Ox 97 97 94 O2 Delivery Room Air Room Air Room Air Room Air Intake and Output 12/01/18 12/01/18 12/02/18 15:00 23:00 07:00 Intake Total 1890 ml 345 ml Output Total 425 ml 0 ml Balance 1465 ml 345 ml CHRIS MARTINEZ WATER TREATMENT TECHNICIAN December 02, 2018 13:08
[2018-12-02] MEDS: FAMOTIDINE 20 MG TABLET. PO PRN ×2 (13:28→23:15)
[2018-12-02] MEDS: DICYCLOMINE HCL 10 MG CAPSULE PO PRN (18:28)
[2018-12-02 18:31] VITALS: BP 128/53
[2018-12-02 23:00] VITALS: BP 132/53
[2018-12-03] MEDS: oxyCODONE/APAP 5/325 1 TAB TABLET PO PRN ×3 (03:38→12:45)
[2018-12-03 06:25] VITALS: BP 102/45
[2018-12-03] MEDS: LEVOTHYROXINE 75 MCG TABLET PO SCH (07:23)
[2018-12-03] MEDS: ALBUTEROL SULFATE 2.5 MG/3 ML NEBU. NEB SCH ×2 (07:23→11:17)
[2018-12-03] MEDS: FAMOTIDINE 20 MG TABLET. PO PRN (07:23)
[2018-12-03] MEDS: BUDESONIDE 0.5 MG/2 ML NEBU. NEB SCH (07:23)
--- NOTE | 2018-12-03 09:00 | NUR ---
rests quietly in bed on her right side. "just wants to lie her for a little longer" at bedside. able to move all extremities without problems.
[2018-12-03] MEDS: ESTRADIOL 1 MG TABLET. PO SCH (09:47)
[2018-12-03] MEDS: LACTOBACILLUS RHAMNOSUS GG 1 CAPSULE. PO SCH (09:47)
[2018-12-03] MEDS: TRIAMTERENE/HCTZ 37.5/25MG TABLET. PO SCH (09:47)
[2018-12-03] MEDS: ASCORBIC ACID 500 MG TABLET PO SCH (09:48)
[2018-12-03] MEDS: POTASSIUM CHLORIDE 10 MEQ TABLET.ER. PO SCH (09:48)
[2018-12-03] MEDS: LORazepam 0.5 MG TABLET PO SCH (09:48)
[2018-12-03] MEDS: CYANOCOBALAMIN (VITAMIN B-12) 1,000 MCG TABLET. PO SCH (09:48)
[2018-12-03] MEDS: DOCUSATE SODIUM 100 MG CAPSULE. PO SCH (09:48)
[2018-12-03] MEDS: DICYCLOMINE HCL 10 MG CAPSULE PO PRN (09:48)
[2018-12-03] MEDS: CYCLOBENZAPRINE 10 MG TABLET. PO SCH (09:50)
[2018-12-03] MEDS: CALCIUM CARBONATE 500 MG TABLET PO SCH (09:51)
[2018-12-03 11:15] VITALS: BP 121/46
[2018-12-03] MEDS ORDERED: OXYC1TAB15 PO (11:28)
--- NOTE | 2018-12-03 11:29 | DISCH ---
DISCHARGE INSTRUCTIONS Condition on Discharge Condition on Discharge: Stable Activity After Discharge Activity Instructions for Disc: Activity as tolerated, Avoid exertion, Walk in house Other activity instructions: ambulation only exercise permitted; gradually increase time and distance Bathing Instructions: Shower-keep dressing dry, No Tub Bath until see Lifting Instructions after Dis: No heavy lifting, No pulling or pushing, Do not lift >10 pounds Exercise Instruction after Dis: Progress as tolerated Driving Instructions after Dis: No driving for 2 weeks Weight Bearing Status after Di: No restrictions, Full weight bearing, As tolerated Diet after Discharge Diet after Discharge: Regular Diet Texture: Regular Liquid Texture: Thin Liquid Swallowing Supervision: None needed Wound Incision Care Wound/Incision Care: Ice to area for comfort, Change dressing Other wound/incision instructi: may leave incision open to air; if no drainage Wound Care Equipment: Dressings Checks after Discharge DC Comment: increase fruits, vegetables and fiber; attempt BM 2-3 days Contacting the [facility] after DC Call your doctor for: Concerns you may have Follow-Up Follow Up With: call [phone] for a 2 week post op appt with Dr. Lazaro/Yvette Treatment/Equipment after DC Adaptive Equipment Issued: Brace/splint AUNDREA LAZARO MD December 03, 2018 11:29
--- NOTE | 2018-12-03 12:00 | NUR ---
getting ready to go home.. eating lunch. reviewed orally discharge instructions regarding lifting restrictions bathing and driving. demonstrated dressing change and new dressings given if needed.
--- NOTE | 2018-12-03 12:40 | NUR ---
reviewed discharge instructions -written. questions answered. dressings and chlor prep given. scripts given. brace placed
--- NOTE | 2018-12-03 13:00 | NUR ---
dismissed to home with
--- NOTE | 2018-12-03 19:27 | DS ---
DATE OF DISCHARGE: 12/03/2018 DATE OF SURGERY: 12/01/2018. DISCHARGE DIAGNOSES: Grade 1 spondylolisthesis with severe lumbar spinal stenosis, L4-L5. OPERATION PERFORMED: 1. Lumbar laminectomy, L4-L5. 2. Posterior instrumentation, L4-L5. 3. Posterolateral fusion, L4-L5. 4. Anterior lumbar diskectomy, L4-L5. 5. Placement of interbody fusion cage, L4-L5. HISTORY OF PRESENT ILLNESS: The patient is a pleasant 72-year-old who developed intractable back and left greater than right leg pain and was found to have a spondylolisthesis on MRI scan, which was a significant grade 1 on standing. She was going to require a wide laminectomy plus an instrumented fusion to prevent worsening of her spondylolisthesis. I did speak with her about the surgery and the risks involved. She understood the expected postoperative course as well. She wished to proceed. HOSPITAL COURSE: She was admitted to the floor postoperatively where she has done well. She has been up ambulating in the room and in the halls with physical therapy. Instruction was given to her regarding her activity restrictions. Her pain is well controlled and she is in good condition to discharge home. DISCHARGE MEDICATIONS: She will resume her medications per the MRAD. DISCHARGE INSTRUCTIONS: She was instructed regarding incision care, activity restrictions and expectations for the next several weeks. She will follow up in our office in two weeks. She understands to call with any questions or concerns. AUNDREA LAZARO MD DR: SWATI/sina JOB#: [id number] / [id number] FLORINA
--- NOTE | 2018-12-04 15:06 | PATHOLOGY ---
[facility] Accession Number: [id number] . 01 Material submitted: . vertebral column - LUMBAR DECOMPRESSION AND DISC . 01 Clinical history: . Lumbar stenosis with neurogenic claudication, spondylolisthesis, radiculopathy . 02 Diagnosis: Segments of fibrocartilaginous, adipose, and skeletal muscle tissue and bone, lumbar decompression and disc: - Degenerative changes of fibrocartilaginous tissue. (JPM:luis; 12/04/2018) QMS/12/04/2018 . 02 Comment: There is no evidence of an acute inflammatory process or malignancy. (JPM:luis; 12/04/2018) . 02 Electronically signed: . Alonso Calero MD, Pathologist NPI- [id number] . 01 Gross description: . The specimen is received in formalin, labeled "Sheila Coulter, lumbar decompression and disc", are multiple irregular fragments of sargent-lópez, fibrous, soft tissue admixed with possible bone measuring 3.0 x 3.0 x 1.0 cm in aggregate. [employer] tissue is submitted in A1 after decalcification. ([facility]; 12/02/2018) . . . . . . . . . . SHS/SHS . 02 Pathologist provided ICD-10: M99.73, G95.19, M43.16, M54.16 . 02 CPT . 347304, [id number] Specimen Comment: A courtesy copy of this report has been sent to Specimen Comment: [phone], . Specimen Comment: Report sent to DR LAZARO / DR COPE Performed at: [address], [place], [place] [id number] MD Rashi Gracia MD Phone: [phone] Performed at: 02 [facility] [address] [place] [id number] MD Alonso Calero MD Phone: [phone]
[2018-12-08] MEDS ORDERED: ERGOCALCIFEROL (VITAMIN D2) 50,000 UNIT CAPSULE. PO SCH (09:00)
== END 2018-12-03 13:00 | disposition home or self-care (01) | DRG 455 ==
LOC: OPSVCIP 08:08 → 4 SOUTHEST 17:25
PROVIDERS: ADMIT Neurological Surgery; ATTEND Neurological Surgery
PROC: 0SG0071 Fusion of Lumbar Vertebral Joint with Autologous Tissue Substitute, Posterior Approach, Posterior Column, Open Approach (ICD-10-PCS; 2018-12-01)
PROC: 0SB20ZZ Excision of Lumbar Vertebral Disc, Open Approach (ICD-10-PCS; 2018-12-01)
PROC: 4A11X4G Monitoring of Peripheral Nervous Electrical Activity, Intraoperative, External Approach (ICD-10-PCS; 2018-12-01)
PROC: 07DS3ZZ Extraction of Vertebral Bone Marrow, Percutaneous Approach (ICD-10-PCS; 2018-12-01)
PROC: 0SG00A0 Fusion of Lumbar Vertebral Joint with Interbody Fusion Device, Anterior Approach, Anterior Column, Open Approach (ICD-10-PCS; principal; 2018-12-01 10:30)
DX: M48.062 Spinal stenosis, lumbar region with neurogenic claudication (principal); M43.16 Spondylolisthesis, lumbar region; M54.16 Radiculopathy, lumbar region; I10 Essential (primary) hypertension; J43.9 Emphysema, unspecified; G43.909 Migraine, unspecified, not intractable, without status migrainosus; M19.90 Unspecified osteoarthritis, unspecified site; M79.7 Fibromyalgia; Z82.0 Family history of epilepsy and other diseases of the nervous system; Z82.49 Family history of ischemic heart disease and other diseases of the circulatory system; Z90.710 Acquired absence of both cervix and uterus; Z83.3 Family history of diabetes mellitus; Z88.0 Allergy status to penicillin; Z88.2 Allergy status to sulfonamides; Z88.8 Allergy status to other drugs, medicaments and biological substances; Z90.49 Acquired absence of other specified parts of digestive tract; Z79.899 Other long term (current) drug therapy
CPT/HCPCS: 36415; 76000; 85025; 85610; 85730; 86850; 86900; 86901; 88304; 88311; 94640; 94760; A7015; C1713; C1893; J0330; J0780; J1100; J1170; J1885; J2001; J2250; J2270; J2370; J2405; J2704; J3010; J3370; J3490; J7030; J7050; J7120; J7613; J7626; 97116; 97530

== ENCOUNTER → 2019-02-23 | Outpatient (CLI) | payer OTHER ==
[~2019-02-23] MED LIST changes: -BACITRACIN 50,000 UNIT in IV NORMAL SALINE 1000ML BAG 1,000 ML IRR ONE; -BUPIVAC MPF-EPI 0.5%-1:200000 30 ML VIAL. ONE; +CYAN-25 PO; -CYAN10005 PO; -GELATIN SPONGE SIZE 100. ONE; -IV RINGERS,LACTATED 1000ML 1,000 ML IV SCH; -KETOROLAC 60 MG/2 ML INJ FOR OR. ONE; -LIDOCAINE 1% PF 2 ML VIAL. ID PRN; -ONDANSETRON PF 4 MG/2 ML VIAL. IV PRN; +OXYC1TAB15 PO; -THROMBIN TOPICAL 20,000 UNIT SPRAY.SYRN KIT TP ONE; -VANCOMYCIN 1GM IVPB FOR OMNI 250 ML IV PRN; -fentaNYL PF VIAL 100 MCG/2 ML VIAL IV PRN
--- NOTE | 2019-02-23 17:01 | RAD ---
EXAM: Lumbar spine, 3 views. HISTORY: Fusion. COMPARISON: CT dated 10/07/2018. FINDINGS: 3 views lumbar spine are obtained. There is instrumented posterior spinal fusion with disc space fusion device placement at L4-L5. There is grade 1 anterolisthesis at this level, measuring 7 mm. There is lumbar levoscoliosis centered at L3. There is degenerative endplate remodeling with disc space narrowing and osteophytosis primarily along the right aspects of L2-L3 and L3-L4 and left aspect of L5-S1. This corresponds with levels of maximum scoliotic curvature. IMPRESSION: 1. Multilevel degenerative change, described above. 2. Instrumented posterior spinal fusion with disc space fusion device placement and grade 1 anterolisthesis at L4-L5. 3. Scoliosis. Electronically signed by: Shea Franklin MD (02/23/2019 4:58 PM) [id number]
== END | disposition home or self-care (01) ==
LOC: RAD 16:13
PROVIDERS: ATTEND Neurological Surgery
DX: M47.816 Spondylosis without myelopathy or radiculopathy, lumbar region (principal); M43.16 Spondylolisthesis, lumbar region; M41.86 Other forms of scoliosis, lumbar region; M48.061 Spinal stenosis, lumbar region without neurogenic claudication; M25.78 Osteophyte, vertebrae; Z98.1 Arthrodesis status
CPT/HCPCS: 72100

== ENCOUNTER → 2019-06-08 | Outpatient (CLI) | payer OTHER ==
--- NOTE | 2019-06-08 17:07 | RAD ---
LUMBAR SPINE 2-3V History: Lumbar fusion Comparison: February 23, 2019 Findings: 3 views of the lumbar spine are submitted. There is again mild levoscoliosis centered near L3. There is again interbody graft at L4-5. There is again posterolateral fusion hardware with bilateral pedicle screws L4 and L5. There is minimal grade 1 anterior spondylolisthesis L4-5 although less apparent on this exam. There is again advanced degenerative disc disease at L5-S1, L3-4, L2-3. Lumbar vertebral body stature is unchanged. There is again very minimal posterior subluxation L2 relative to L3. There is atherosclerotic calcification of the abdominal aorta. Impression: 1. Degree of grade 1 anterior spondylolisthesis at L4-5 is less prominent on this exam. There is posterolateral fusion hardware L4-5 and also L4-5 interbody graft. 2. There is multilevel advanced lumbar degenerative disc disease. Electronically signed by: Pankaj Hernandez MD (06/08/2019 5:04 PM) [id number]
== END | disposition home or self-care (01) ==
LOC: RAD 15:30
PROVIDERS: ATTEND Neurological Surgery
DX: M43.16 Spondylolisthesis, lumbar region (principal); M51.37 Other intervertebral disc degeneration, lumbosacral region; I70.8 Atherosclerosis of other arteries; Z98.890 Other specified postprocedural states
CPT/HCPCS: 72100

== ENCOUNTER → 2019-12-30 | Outpatient (CLI) | payer MEDICARE ==
[~2019-12-30] MED LIST changes: -ASCO500T2 PO; +ASCO500T4 PO; -POTA10TA12 PO; +POTASSIUM CHLO10 ME1 PO
--- NOTE | 2019-12-30 16:48 | RAD ---
Lumbar spine 3 views. HISTORY: Pain post fall 3 views were taken of the lumbar spine. Comparison is made with a study from May 2019. Patient had previous lumbar fusion at L4-5. There is disc space narrowing and hypertrophic change at L5-S1. There is also disc space narrowing at L2-3 and L3-4. There is mild scoliosis. Pattern appears unchanged from the old study. Pedicle screws appear unchanged in position. There is no acute fracture. IMPRESSION: 1. Previous fusion L4-5. 2. Degenerative disc disease in lower lumbar spine. 3. No acute fracture. 4. Mild scoliosis. Electronically signed by: Haseeb Bradley MD (12/30/2019 4:45 PM) [id number]
== END | disposition home or self-care (01) ==
LOC: RAD 15:52
PROVIDERS: ATTEND Neurological Surgery
DX: M48.07 Spinal stenosis, lumbosacral region (principal); M43.26 Fusion of spine, lumbar region; M41.9 Scoliosis, unspecified; M51.36 Other intervertebral disc degeneration, lumbar region; M41.86 Other forms of scoliosis, lumbar region
CPT/HCPCS: 72100

== ENCOUNTER 2021-04-01 11:13 | Inpatient (IN) | payer MEDICARE ==
[~2021-04-01] VITALS: Ht 160 cm; Wt 78.8 kg
[~2021-04-01 11:13] MED LIST changes: -CALC600T4 PO; +CALC600T60 PO; -LACT1CAP29 PO; +LACT1CAP37 PO
[2021-04-01] MEDS ORDERED: DEXAMETHASONE SOD PHOS 4 MG/ML VIAL IVP ONE (11:30)
[2021-04-01] MEDS ORDERED: IV NORMAL SALINE 1000ML BAG 1,000 ML IV ONE ×2 (11:30→12:45)
--- NOTE | 2021-04-01 11:30 | ED.ADGEN ---
Past Medical History Smoking Status: Former Smoker General Adult EDM: Chief Complaint: SHORTNESS OF BREATH HPI: HPI: Patient is a 75 year old female brought in by EMS from home for shortness of breath. Per EMS report she was 82% on room air and placed on the nonrebreather at 10 L with an increased to 94%. Patient was diagnosed with COVID-19 1 week ago and is unvaccinated. Also has a history of COPD Review of Systems: Review of Systems: All other systems within normal limits except for as noted in the HPI Current Medications: Current Medications Medications (Trade) Dose Ordered Sig/Janie Start Time Stop Time Status Last Admin Dose Admin Dexamethasone Sodium Phosphate (Decadron) 10 mg 1X ONCE 04/01/21 11:30 04/01/21 11:31 DC 04/01/21 12:11 10 MG Heparin Sodium (Porcine) (Heparin Sodium) 1,150 unit PRN Q6HRS PRN 04/01/21 12:45 Heparin Sodium/ Dextrose 250 ml @ 0 mls/hr CONT PRN 04/01/21 12:45 04/01/21 13:37 12.3 MLS/HR Levofloxacin/ Dextrose 150 ml @ 100 mls/hr 1X ONCE 04/01/21 11:30 04/01/21 12:59 DC 04/01/21 12:12 100 MLS/HR Sodium Chloride 1,000 ml @ 1,000 mls/hr 1X ONCE 04/01/21 12:45 04/01/21 13:44 DC 04/01/21 13:19 1,000 MLS/HR Allergies: Allergies: Allergies Coded Allergies Type Severity Reaction Last Updated Verified Penicillins Allergy Intermediate Unknown 12/01/18 Yes Sulfa (Sulfonamide Antibiotics) Allergy Intermediate Unknown 12/01/18 Yes azithromycin Allergy Intermediate Unknown 12/01/18 Yes Iodinated Contrast Media Adverse Reaction Intermediate Nausea and Vomiting 12/01/18 Yes doxycycline Adverse Reaction Intermediate Rash 12/01/18 Yes Physical Exam: PE: Constitutional: Well developed, well nourished, no acute distress, non-toxic appearance. [] HENT: Normocephalic, atraumatic, bilateral external ears normal, nose normal. [] Eyes: PERRLA, conjunctiva normal, no discharge. [] Neck: No rigidity, supple, no stridor. [] Cardiovascular: Regular rate and rhythm, brisk cap refill [] Lungs & Thorax: Symmetric respirations, tachypneic Abdomen: Soft, nondistended. Skin: Warm, dry, no erythema, no rash. [] Back: Unremarkable Extremities: No deformities, range of motion grossly intact, no lower extremity edema [] Neurologic: Alert and oriented X 3, no focal deficits noted. [] Psychologic: Affect normal, judgement normal, mood normal. [] Current Patient Data: Labs: Laboratory Tests Test 04/01/21 11:59 04/01/21 12:24 White Blood Count 12.8 x10^3/uL (4.0-11.0) H Red Blood Count 5.79 x10^6/uL (3.50-5.40) H Hemoglobin 16.3 g/dL (12.0-15.5) H Hematocrit 48.8 % (36.0-47.0) H Mean Corpuscular Volume 84 fL (79-100) Mean Corpuscular Hemoglobin 28 pg (25-35) Mean Corpuscular Hemoglobin Concent 33 g/dL (31-37) Red Cell Distribution Width 14.9 % (11.5-14.5) H Platelet Count 320 x10^3/uL (140-400) Neutrophils (%) (Auto) 83 % (31-73) H Lymphocytes (%) (Auto) 8 % (24-48) L Monocytes (%) (Auto) 8 % (0-9) Eosinophils (%) (Auto) 0 % (0-3) Basophils (%) (Auto) 0 % (0-3) Neutrophils # (Auto) 10.7 x10^3/uL (1.8-7.7) H Lymphocytes # (Auto) 1.1 x10^3/uL (1.0-4.8) Monocytes # (Auto) 1.0 x10^3/uL (0.0-1.1) Eosinophils # (Auto) 0.0 x10^3/uL (0.0-0.7) Basophils # (Auto) 0.1 x10^3/uL (0.0-0.2) Prothrombin Time 13.5 SEC (11.7-14.0) Prothrombin Time INR 1.0 (0.8-1.1) Activated Partial Thromboplast Time 30 SEC (24-38) D-Dimer (Myranda) 2.96 ug/mlFEU (0.00-0.50) H Sodium Level 137 mmol/L (136-145) Potassium Level 3.3 mmol/L (3.5-5.1) L Chloride Level 94 mmol/L (98-107) L Carbon Dioxide Level 14 mmol/L (21-32) L Anion Gap 29 (6-14) H Blood Urea Nitrogen 48 mg/dL (7-20) H Creatinine 2.7 mg/dL (0.6-1.0) H Estimated GFR (Cockcroft-Gault) 17.2 BUN/Creatinine Ratio 18 (6-20) Glucose Level 224 mg/dL (70-99) H Lactic Acid Level 6.9 mmol/L (0.4-2.0) *H Calcium Level 9.3 mg/dL (8.5-10.1) Total Bilirubin 0.7 mg/dL (0.2-1.0) Aspartate Amino Transferase (AST) 91 U/L (15-37) H Alanine Aminotransferase (ALT) 49 U/L (14-59) Alkaline Phosphatase 128 U/L (46-116) H Troponin I Quantitative 1.579 ng/mL (0.000-0.055) RP-Byz-I-Type Natriuretic Peptide > 92484 pg/mL (0-449) H Total Protein 7.5 g/dL (6.4-8.2) Albumin 3.1 g/dL (3.4-5.0) L Albumin/Globulin Ratio 0.7 (1.0-1.7) L Urine Collection Type U cath Urine Color Mora Urine Clarity Cloudy Urine pH 6.0 (<5.0-8.0) Urine Specific [place] 1.020 (1.000-1.030) Urine Protein >=300 mg/dL (NEG-TRACE) Urine Glucose (UA) Negative mg/dL (NEG) Urine Ketones (Stick) Negative mg/dL (NEG) Urine Blood Trace (NEG) Urine Nitrite Negative (NEG) Urine Bilirubin Negative (NEG) Urine Urobilinogen Dipstick 0.2 mg/dL (0.2 mg/dL) Urine Leukocyte Esterase Negative (NEG) Urine RBC 3-5 /HPF (0-2) Urine WBC 1-4 /HPF (0-4) Urine Squamous Epithelial Cells Many /LPF Urine Amorphous Sediment Present /HPF Urine Bacteria 0 /HPF (0-FEW) Laboratory Tests 04/01/21 11:59 Laboratory Tests 04/01/21 11:59 Vital Signs: Vital Signs Date Time Temp Pulse Resp B/P (MAP) Pulse Ox O2 Delivery O2 Flow Rate FiO2 04/01/21 12:47 110 42 142/64 (90) 99 NonRebreather Mask 15.0 04/01/21 11:13 98.4 98.4 EKG: EKG: Sinus tachycardia, left axis deviation, heart rate 108 bpm, no ST elevation or depression, occasional PVC [] Heart Score: C/O Chest Pain: N/A HEART Score for Chest Pain: HEART Score for Chest Pain Response (Comments) Value History Moderately Suspicious 1 ECG Nonspecific Repolarizatio 1 Age > 65 2 Risk Factors 1 or 2 Risk Factors 1 Troponin >3 x Normal Limit 2 Total 7 Risk Factors: Risk Factors: DM, Current or recent (<one month) smoker, HTN, HLP, family history of CAD, obesity. Risk Scores: Score 0 - 3: 2.5% MACE over next 6 weeks - Discharge Home Score 4 - 6: 20.3% MACE over next 6 weeks - Admit for Clinical Observation Score 7 - 10: 72.7% MACE over next 6 weeks - Early Invasive Strategies Radiology/Procedures: Radiology/Procedures: [facility] [address] [place] [address] IMAGING REPORT Signed PATIENT: JOHNATHON CHAWLA BACCOUNT: [id number] : 1945 LOCATION: ER AGE: 75 SEX: F EXAM STATUS: REG ER ORD. PHYSICIAN: PHILL SINCLAIR MD REASON: covid PROCEDURE: CT CHEST WO CONTRAST Exam Date: 04/01/2021 12:[address] THORAX WO Indication: Reason: covid / Spl. Instructions: / History: . TECHNIQUE: CT scan of the chest was performed without intravenous contrast. One or more of the following dose reduction techniques were utilized: *Automated exposure control (AEC) *Adjustment of mA and/or kV according to patient size *Use of iterative reconstruction technique *CT scan done according to ALARA, or ALARA/IMAGE GENTLY FINDINGS: There is a 9 mm solid nodule on the right upper lobe on image 16 series 3. Mild emphysematous changes are noted, most prominent in the left upper lobe. Prominent reticular markings throughout the left lung and in the right lung base and posterior right lung are nonspecific but could represent interstitial pneumonia, atelectasis, and/or scarring. The central airways are patent. There is no focal consolidation, pleural effusion or pneumothorax. The visualized thyroid gland is within normal limits. Mildly enlarged mediastinal lymph nodes are noted measuring up to 11 mm in short axis. Aorta is normal in caliber with atherosclerotic calcifications. The heart is normal in size without pericardial effusion. Images of the upper abdomen demonstrate a small hiatal hernia. Degenerative ch anges are seen in the spine. IMPRESSION: Prominent interstitial markings throughout the left lung and to a lesser extent in the right lung are nonspecific and may represent interstitial pneumonia, atelectasis, and/or scarring. 9 mm right upper lobe nodule noted. According to the 2017 Fleischner Society Guidelines for Management of Incidental Pulmonary Nodules Detected on CT, for non-calcified solid nodules > 8 mm in diameter a follow up CT is recommended in 3 months. Alternatively, further evaluation with PET/CT and/or tissue sampling could also be considered. Mildly enlarged mediastinal lymph nodes are nonspecific. Mild emphysematous changes noted. Electronically signed by: Ama Nuñez MD (04/01/2021 1:28 PM) [facility] DICTATED and SIGNED BY: AMA NUÑEZ MD DATE: 04/01/21 [id number] [] Course & Med Decision Making: Course & Med Decision Making Pertinent Labs and Imaging studies reviewed. (See chart for details) Patient placed on BiPAP. Has elevated D-dimer and likelihood of PE, but has a kidney injury as well as a contrast allergy. we will treat with heparin for the NSTEMI at a higher dose to also cover for the high likelihood of a PE. Patient is tachycardic but blood pressure remained stable. Treated with dexamethasone and levo ofloxacin since patient has a history of COPD. [] Dragon Disclaimer: Dragon Disclaimer: This electronic medical record was generated, in whole or in part, using a voice recognition dictation system. Departure Departure Impression: Primary Impression: Pneumonia due to 2019 novel coronavirus Disposition: ADMITTED INPATIENT Admitting Physician: HIMS Condition: CRITICAL Referrals: CHONG COPE DO (PCP) PHILL SINCLAIR MD Apr 01, 2021 11:30
[2021-04-01 12:13] LABS: BASO # 0.1 x10^3/uL (0.0-0.2); BASO % 0 % (0-3); EOS % 0 % (0-3); HEMATOCRIT 48.8 % (36.0-47.0); HEMOGLOBIN 16.3 g/dL (12.0-15.5); LYMPH # 1.1 x10^3/uL (1.0-4.8); LYMPH % 8 % (24-48); MEAN CORPUSCULAR HEMOGLOBIN 28 pg (25-35); MEAN CORPUSCULAR HGB CONC 33 g/dL (31-37); MEAN CORPUSCULAR VOLUME 84 fL (79-100); MONO % 8 % (0-9); NEUT # 10.7 x10^3/uL (1.8-7.7); NEUT % 83 % (31-73); PLATELET COUNT 320 x10^3/uL (140-400); RED BLOOD COUNT 5.79 x10^6/uL (3.50-5.40); RED CELL DISTRIBUTION WIDTH 14.9 % (11.5-14.5); WHITE BLOOD COUNT 12.8 x10^3/uL (4.0-11.0)
[2021-04-01 12:38] LABS: ALBUMIN 3.1 g/dL (3.4-5.0); ALBUMIN/GLOBULIN RATIO 0.7 (1.0-1.7); CALCIUM 9.3 mg/dL (8.5-10.1); CREATININE 2.7 mg/dL (0.6-1.0); GFR 17.2; POTASSIUM 3.3 mmol/L (3.5-5.1); TOTAL BILIRUBIN 0.7 mg/dL (0.2-1.0); TOTAL PROTEIN 7.5 g/dL (6.4-8.2)
[2021-04-01] MEDS ORDERED: HEPARIN for IV BOLUS 10,000 UNIT/10 ML VIAL. IV PRN ×2 (12:45)
[2021-04-01] MEDS ORDERED: ACETAMINOPHEN 325 MG TABLET. PO PRN (13:15)
[2021-04-01] MEDS ORDERED: ONDANSETRON PF 4 MG/2 ML VIAL. IVP PRN (13:15)
[2021-04-01] MEDS ORDERED: fentaNYL PF VIAL 100 MCG/2 ML VIAL IVP PRN (13:15)
--- NOTE | 2021-04-01 13:31 | RAD ---
Exam Date: 04/01/2021 12:[address] THORAX WO Indication: Reason: covid / Spl. Instructions: / History: . TECHNIQUE: CT scan of the chest was performed without intravenous contrast. One or more of the [facility] dose reduction techniques were utilized: *Automated exposure control (AEC) *Adjustment of mA and/or kV according to patient size *Use of iterative reconstruction technique *CT scan done according to ALARA, or ALARA/IMAGE GENTLY FINDINGS: There is a 9 mm solid nodule on the right upper lobe on image 16 series 3. Mild emphysematous change s are noted, most prominent in the left upper lobe. Prominent reticular markings throughout the left lung and in the right lung base and posterior right lung are nonspecific but could represent interst itial pneumonia, atelectasis, and/or scarring. The central airways are patent. There is no focal consolidation, pleural effusion or pneumothorax. The visualized thyroid gland is within normal limits. Mildly enlarged mediastinal lymph nodes are noted measuring up to 11 mm in short axis. Aorta is normal in caliber with atherosclerotic calcifications. The heart is normal in size without pericardial effusion. Images of the upper abdomen demonstrate a small hiatal hernia. Degenerative changes are seen in the spine. IMPRESSION: Prominent interstitial markings throughout the left lung and to a lesser extent in the right lung are nonspecific and may represent interstitial pneumonia, atelectasis, and/or scarring. 9 mm right upper lobe nodule noted. According to the 2017 Fleischner Society Guidelines for Manageme nt of Incidental Pulmonary Nodules Detected on CT, for non-calcified solid nodules > 8 mm in diameter a follow up CT is recommended in 3 months. Alternatively, further evaluation with PET/CT and/or tiss ue sampling could also be considered. Mildly enlarged mediastinal lymph nodes are nonspecific. Mild emphysematous changes noted. Electronically signed by: Stuart Nuñez MD (04/01/2021 1:28 PM) [facility]
[2021-04-01] MEDS: HEPARIN 25,000UTS/250ML PREMIX 250 ML IV PRN (13:37)
[2021-04-01 13:53] LABS: BILIRUBIN,URINE NEGATIVE (NEG); CLARITY,URINE CLOUDY; COLOR,URINE AMBER; NITRITE,URINE NEGATIVE (NEG); PROTEIN,URINE >=300 mg/dL (NEG-TRACE); UROBILINOGEN,URINE 0.2 mg/dL (0.2 mg/dL)
[2021-04-01 14:18] LABS: AMORPHOUS SEDIMENT,UR PRESENT /HPF; BACTERIA,URINE 0 /HPF (0-FEW)
[2021-04-01 15:00] LABS: PROTHROMBIN TIME PATIENT 13.5 SEC (11.7-14.0)
[2021-04-01] MEDS: IV NORMAL SALINE 1000ML BAG 1,000 ML IV SCH ×2 (16:57→22:39)
[2021-04-01 18:00] VITALS: BP 129/83
--- NOTE | 2021-04-01 18:10 | NUR ---
1854 78 y/o adm form ER to ICU 109. IV left side inadvertently removed with transfer from cart to bed. Dominic RN attempting to restart . Overt mottleing from head o toe w more noted over bilateral lower extremities. Cool o touch . [place] cear a this time. Questioned on "code ststus" clearly sated sh DID NOT wish to be INTUBATED. DR Deleon notified... orders. RR [id number]: Joe Mccauley, AMARILYS, DOC 14.02: [email or web address] Defense 14.03: Almas Herrera, PK, BAL 14.04: Shaq Pace, TE, CHI 14.05: [facility] Defense 14.06: Angelo Mccormack, WR, IND 14.07: AMARILYS Stout, NOS 14.08: Brayden Lamas, RB, NYJ 14.09: [facility] Defense 14.10: [facility] Defense 14.11: Gabriel Bautista, RB, MIN 14.12: David Rivas QJosh, MIN 15.01: [facility] [place] Defense 15.02: [address] Defense 15.03: Jono Monet, PK, KCC 15.04: Godfrey Dye PK, BUF 15.05: [facility] Defense 15.06: Lachelle Nguyen PK, PITER 15.07: [facility] Defense 15.08: Abel Powers, RB, NOS 15.09: [facility] Defense 15.10. [facility] Defense 15.11: Rick Allen PK, ASAD 15.12: [facility] Defense 16.01: Timmy Goldman PK, TBB 16.02: Christopher Arnett, WR, NOS 16.03: Jaskaran Leon, RB, BAL 16.04: Heriberto Gsapar, PK, LVR 16.05: Toy Mancini, PK, IND 16.06: Santosh Ramachandran PK, LAC 16.07: [employer] Defense 16.08: Munir Bear PK, DOC 16.09: Aretha Fishman, QB, ALLY 16.10: Rajesh Alvarez, TE, SEA 16.11: Munir Daugherty PK, SEA 16.12: Clarence Miguel PK, SFOpnic at 60 Addendum: 04/01/21 at 1824 by Adeline Pringle RN Disreguard last sentence ? of its origin. Febrile-101 ax,tachycardic,.. septic shock/
--- NOTE | 2021-04-01 18:11 | PDOC1 ---
History and Physical Date of Admission Date of Admission DATE: 04/01/21 TIME: 18:09 History of Present Illness History of Present Illness Patient is a 75 year old female brought in by EMS from home for shortness of breath. Per EMS report she was 82% on room air and placed on the nonrebreather at 10 L with an increased to 94%. Patient was diagnosed with COVID-19 1 week ago and is unvaccinated. Also has a history of COPD Current Problem List Problem List Problems Medical Problems: (1) Pneumonia due to 2019 novel coronavirus Status: Acute Current Medications Current Medications Current Medications Sodium Chloride 1,000 ml @ 1,000 mls/hr 1X ONCE IV Last administered on 04/01/21at 12:13; Start 04/01/21 at 11:30; Stop 04/01/21 at 12:29; Status DC Dexamethasone Sodium Phosphate (Decadron) 10 mg 1X ONCE IVP Last administered on 04/01/21at 12:11; Start 04/01/21 at 11:30; Stop 04/01/21 at 11:31; Status DC Levofloxacin/ Dextrose 150 ml @ 100 mls/hr 1X ONCE IV Last administered on 04/01/21at 12:12; Start 04/01/21 at 11:30; Stop 04/01/21 at 12:59; Status DC Sodium Chloride 1,000 ml @ 1,000 mls/hr 1X ONCE IV Last administered on 04/01/21at 13:19; Start 04/01/21 at 12:45; Stop 04/01/21 at 13:44; Status DC Heparin Sodium/ Dextrose 250 ml @ 0 mls/hr CONT PRN IV PER PROTOCOL Last administered on 04/01/21at 13:37; Start 04/01/21 at 12:45 Heparin Sodium (Porcine) (Heparin Sodium) 2,300 unit PRN Q6HRS PRN IV FOR UFH LEVEL LESS THAN 0.2 Last administered on 04/01/21at 13:32; Start 04/01/21 at 12:45 Heparin Sodium (Porcine) (Heparin Sodium) 1,150 unit PRN Q6HRS PRN IV FOR UFH LEVEL 0.2 - 0.29; Start 04/01/21 at 12:45 Ondansetron HCl (Zofran) 4 mg PRN Q8HRS PRN IVP NAUSEA/VOMITING; Start 04/01/21 at 13:15; Stop 04/02/21 at 13:14 Fentanyl Citrate (Fentanyl 2ml Vial) 50 mcg PRN Q1HR PRN IVP PAIN; Start 04/01/21 at 13:15; Stop 04/02/21 at 13:14 Sodium Chloride 1,000 ml @ 125 mls/hr Q8H IV Last administered on 04/01/21at 16: 57; Start 04/01/21 at 13:15; Stop 04/02/21 at 13:14 Acetaminophen (Tylenol) 650 mg PRN Q4HRS PRN PO FEVER > 100.3'F; Start 04/01/21 at 13:15; Stop 04/02/21 at 13:14 Morphine Sulfate (Morphine Sulfate) 4 mg 1X ONCE IM ; Start 04/01/21 at 18:15; Stop 04/01/21 at 18:16; Status UNV Dexmedetomidine HCl 400 mcg/ Sodium Chloride 100 ml @ 0 mls/hr CONT PRN IV PER PROTOCOL; Start 04/01/21 at 18:15; Status UNV Sodium Chloride 500 ml @ 500 mls/hr 1X PRN PRN IV SEE COMMENTS; Start 04/01/21 at 18:15; Status UNV Atropine Sulfate (ATROPINE 0.5mg SYRINGE) 0.5 mg PRN Q5MIN PRN IV SEE COMMENTS; Start 04/01/21 at 18:15; Status UNV Active Scripts Active Percocet 5-325 Mg Tablet (Oxycodone/Acetaminophen) 1 Each Tablet 1 Tab PO PRN Q4HRS PRN Reported Proair Hfa (Albuterol Sulfate) 8.5 Gm Hfa.aer.ad 1 Puff INH PRN Q6HRS PRN Albuterol Sulfate Neb Soln (Albuterol Sulfate) 2.5 Mg/3 Ml Vial.neb 2.5 Mg NEB PRN QID PRN Compazine (Prochlorperazine Maleate) 10 Mg Tablet 10 Mg PO PRN BID PRN Gas-X (Simethicone) 125 Mg Capsule 125 Mg PO PRN DAILY PRN Ambien (Zolpidem Tartrate) 10 Mg Tablet 10 Mg PO PRN QHS PRN Cyclobenzaprine Hcl 10 Mg Tablet 10 Mg PO TID Lorazepam 0.5 Mg Tablet 0.5 Mg PO TID Vitamin C (Ascorbic Acid) 500 Mg Tablet 500 Mg PO DAILY Vitamin D2 (Ergocalciferol (Vitamin D2)) 50,000 Unit Capsule 50,000 Unit PO WEEKLY Stool Softener (Docusate Sodium) 50 Mg Capsule 50 Mg PO DAILY Dicyclomine Hcl 10 Mg Capsule 10 Mg PO PRN QID PRN Probiotic (Lactobacillus Combo No.10) 1 Each Capsule 1 Each PO DAILY Zantac (Ranitidine Hcl) 150 Mg Tablet 150 Mg PO PRN BID PRN Breo Ellipta 200-25 Mcg INH (Fluticasone/Vilanterol) 1 Each Blst.w.dev 1 Puff IH DAILY Estradiol 2 Mg Tablet 2 Mg PO DAILY Triamterene-Hctz 37.5-25 Mg Tb (Triamterene/Hydrochlorothiazid) 1 Each Tablet 1 Tab PO DAILY Levothyroxine Sodium 75 Mcg Tablet 75 Mcg PO DAILYAC Potassium Chloride 10 Meq Tablet.er 10 Meq PO DAILY Vitamin B-12 (Cyanocobalamin (Vitamin B-12)) 1,000 Mcg Tablet 1,000 Mcg PO DAILY Calcium (Calcium Carbonate) 600 Mg Tablet 600 Mg PO DAILY Allergies Allergies: Coded Allergies: Penicillins (Verified Allergy, Intermediate, Unknown, 12/01/18) Sulfa (Sulfonamide Antibiotics) (Verified Allergy, Intermediate, Unknown, 12/01/18) azithromycin (Verified Allergy, Intermediate, Unknown, 12/01/18) Iodinated Contrast Media (Verified Adverse Reaction, Intermediate, Nausea and Vomiting, 12/01/18) doxycycline (Verified Adverse Reaction, Intermediate, Rash, 12/01/18) ROS Review of System in distress, tough to talk General: YES: Fatigue, Malaise PSYCHOLOGICAL ROS: YES: Hostility Eyes: No Blurry vision, No Decreased vision, No Double vision, No Dry eyes, No Excessive tearing, No Eye Pain, No Itchy Eyes, No Loss of vision, No Photoph obia, No Scotomata, No Uses contacts, No Uses glasses, No Other HEENT: No: Heacaches, Visual Changes, Hearing change, Nasal congestion, Nasal discharge, Oral lesions, Sinus pain, Sore Throat, Epistaxis, Sneezing, Snoring, Tinnitus, Vertigo, Vocal changes, Other Respiratory: YES: Cough, Shortness of breath, SOB with excertion Cardiovascular: yes Chest Pain, yes Paroxysmal Noc. Dyspnea Gastrointestinal: Yes Nausea Genitourinary: No Dysuria, No Frequency, No Incontinence, No Hematuria, No Retention, No Discharge, No Urgency, No Pain, No Flank Pain, No Other, No , No , No , No , No , No , No Musculoskeletal: No Gait Disturbance, No Joint Pain, No Joint Stiffness, No Joint Swelling, No Muscle Pain, No Muscular Weakness, No Pain In:, No Swelling In:, No Other Skin: No Dry Skin, No Eczema, No Hair Changes, No Lumps, No Mole Changes, No Mottling, No Nail Changes, No Pruritus, No Rash, No Skin Lesion Changes, No Other, No Acne Physical Exam Physical Exam rigors, teeth chattering General: severe distress HEENT: EOMI, Other Lungs: Other (rales, fast, marked rate) Extremities: No edema Neuro: Sensation intact Psych/Mental Status: Other (too much distress to eval) Vitals Vitals Vital Signs Date Time Temp Pulse Resp B/P (MAP) Pulse Ox O2 Delivery O2 Flow Rate FiO2 04/01/21 17:29 118 38 153/84 (107) 95 BiPAP/CPAP 04/01/21 12:47 15.0 04/01/21 11:13 98.4 98.4 Labs Labs Laboratory Tests Test 04/01/21 11:59 04/01/21 12:24 04/01/21 15:22 White Blood Count 12.8 x10^3/uL (4.0-11.0) Red Blood Count 5.79 x10^6/uL (3.50-5.40) Hemoglobin 16.3 g/dL (12.0-15.5) Hematocrit 48.8 % (36.0-47.0) Mean Corpuscular Volume 84 fL (79-100) Mean Corpuscular Hemoglobin 28 pg (25-35) Mean Corpuscular Hemoglobin Concent 33 g/dL (31-37) Red Cell Distribution Width 14.9 % (11.5-14.5) Platelet Count 320 x10^3/uL (140-400) Neutrophils (%) (Auto) 83 % (31-73) Lymphocytes (%) (Auto) 8 % (24-48) Monocytes (%) (Auto) 8 % (0-9) Eosinophils (%) (Auto) 0 % (0-3) Basophils (%) (Auto) 0 % (0-3) Neutrophils # (Auto) 10.7 x10^3/uL (1.8-7.7) Lymphocytes # (Auto) 1.1 x10^3/uL (1.0-4.8) Monocytes # (Auto) 1.0 x10^3/uL (0.0-1.1) Eosinophils # (Auto) 0.0 x10^3/uL (0.0-0.7) Basophils # (Auto) 0.1 x10^3/uL (0.0-0.2) Prothrombin Time 13.5 SEC (11.7-14.0) Prothromb Time International Ratio 1.0 (0.8-1.1) Activated Partial Thromboplast Time 30 SEC (24-38) D-Dimer (Myranda) 2.96 ug/mlFEU (0.00-0.50) Sodium Level 137 mmol/L (136-145) Potassium Level 3.3 mmol/L (3.5-5.1) Chloride Level 94 mmol/L (98-107) Carbon Dioxide Level 14 mmol/L (21-32) Anion Gap 29 (6-14) Blood Urea Nitrogen 48 mg/dL (7-20) Creatinine 2.7 mg/dL (0.6-1.0) Estimated GFR (Cockcroft-Gault) 17.2 BUN/Creatinine Ratio 18 (6-20) Glucose Level 224 mg/dL (70-99) Lactic Acid Level 6.9 mmol/L (0.4-2.0) 3.6 mmol/L (0.4-2.0) Calcium Level 9.3 mg/dL (8.5-10.1) Total Bilirubin 0.7 mg/dL (0.2-1.0) Aspartate Amino Transf (AST/SGOT) 91 U/L (15-37) Alanine Aminotransferase (ALT/SGPT) 49 U/L (14-59) Alkaline Phosphatase 128 U/L (46-116) Troponin I Quantitative 1.579 ng/mL (0.000-0.055) 1.234 ng/mL (0.000-0.055) YO-Kvl-R-Type Natriuretic Peptide > 76883 pg/mL (0-449) Total Protein 7.5 g/dL (6.4-8.2) Albumin 3.1 g/dL (3.4-5.0) Albumin/Globulin Ratio 0.7 (1.0-1.7) Urine Collection Type U cath Urine Color Mora Urine Clarity Cloudy Urine pH 6.0 (<5.0-8.0) Urine Specific [place] 1.020 (1.000-1.030) Urine Protein >=300 mg/dL (NEG-TRACE) Urine Glucose (UA) Negative mg/dL (NEG) Urine Ketones (Stick) Negative mg/dL (NEG) Urine Blood Trace (NEG) Urine Nitrite Negative (NEG) Urine Bilirubin Negative (NEG) Urine Urobilinogen Dipstick 0.2 mg/dL (0.2 mg/dL) Urine Leukocyte Esterase Negative (NEG) Urine RBC 3-5 /HPF (0-2) Urine WBC 1-4 /HPF (0-4) Urine Squamous Epithelial Cells Many /LPF Urine Amorphous Sediment Present /HPF Urine Bacteria 0 /HPF (0-FEW) Laboratory Tests Test 04/01/21 11:59 04/01/21 12:24 04/01/21 15:22 White Blood Count 12.8 x10^3/uL (4.0-11.0) Red Blood Count 5.79 x10^6/uL (3.50-5.40) Hemoglobin 16.3 g/dL (12.0-15.5) Hematocrit 48.8 % (36.0-47.0) Mean Corpuscular Volume 84 fL (79-100) Mean Corpuscular Hemoglobin 28 pg (25-35) Mean Corpuscular Hemoglobin Concent 33 g/dL (31-37) Red Cell Distribution Width 14.9 % (11.5-14.5) Platelet Count 320 x10^3/uL (140-400) Neutrophils (%) (Auto) 83 % (31-73) Lymphocytes (%) (Auto) 8 % (24-48) Monocytes (%) (Auto) 8 % (0-9) Eosinophils (%) (Auto) 0 % (0-3) Basophils (%) (Auto) 0 % (0-3) Neutrophils # (Auto) 10.7 x10^3/uL (1.8-7.7) Lymphocytes # (Auto) 1.1 x10^3/uL (1.0-4.8) Monocytes # (Auto) 1.0 x10^3/uL (0.0-1.1) Eosinophils # (Auto) 0.0 x10^3/uL (0.0-0.7) Basophils # (Auto) 0.1 x10^3/uL (0.0-0.2) Prothrombin Time 13.5 SEC (11.7-14.0) Prothromb Time International Ratio 1.0 (0.8-1.1) Activated Partial Thromboplast Time 30 SEC (24-38) D-Dimer (Myranda) 2.96 ug/mlFEU (0.00-0.50) Sodium Level 137 mmol/L (136-145) Potassium Level 3.3 mmol/L (3.5-5.1) Chloride Level 94 mmol/L (98-107) Carbon Dioxide Level 14 mmol/L (21-32) Anion Gap 29 (6-14) Blood Urea Nitrogen 48 mg/dL (7-20) Creatinine 2.7 mg/dL (0.6-1.0) Estimated GFR (Cockcroft-Gault) 17.2 BUN/Creatinine Ratio 18 (6-20) Glucose Level 224 mg/dL (70-99) Lactic Acid Level 6.9 mmol/L (0.4-2.0) 3.6 mmol/L (0.4-2.0) Calcium Level 9.3 mg/dL (8.5-10.1) Total Bilirubin 0.7 mg/dL (0.2-1.0) Aspartate Amino Transf (AST/SGOT) 91 U/L (15-37) Alanine Aminotransferase (ALT/SGPT) 49 U/L (14-59) Alkaline Phosphatase 128 U/L (46-116) Troponin I Quantitative 1.579 ng/mL (0.000-0.055) 1.234 ng/mL (0.000-0.055) DV-Wwc-I-Type Natriuretic Peptide > 65722 pg/mL (0-449) Total Protein 7.5 g/dL (6.4-8.2) Albumin 3.1 g/dL (3.4-5.0) Albumin/Globulin Ratio 0.7 (1.0-1.7) Urine Collection Type U cath Urine Color Mora Urine Clarity Cloudy Urine pH 6.0 (<5.0-8.0) Urine Specific [place] 1.020 (1.000-1.030) Urine Protein >=300 mg/dL (NEG-TRACE) Urine Glucose (UA) Negative mg/dL (NEG) Urine Ketones (Stick) Negative mg/dL (NEG) Urine Blood Trace (NEG) Urine Nitrite Negative (NEG) Urine Bilirubin Negative (NEG) Urine Urobilinogen Dipstick 0.2 mg/dL (0.2 mg/dL) Urine Leukocyte Esterase Negative (NEG) Urine RBC 3-5 /HPF (0-2) Urine WBC 1-4 /HPF (0-4) Urine Squamous Epithelial Cells Many /LPF Urine Amorphous Sediment Present /HPF Urine Bacteria 0 /HPF (0-FEW) VTE Prophylaxis Ordered VTE Prophylaxis Devices: Yes VTE Pharmacological Prophylaxi: Yes Assessment/Plan Assessment/Plan sepsis severe sepsis acute hypoxic respiratory failure, alarming respiratory rate in the ER, better with meds given COVID 19 pneumonia, not vaccinated COPD, acute exacerbation NSTEMI, demand hypokalemia acute acidosis, lactate, pt discussed her end of life plan, does not want to be intubated or have life sustaining measures otherwise, IV steroids, abx, ICU admit, acutely ill, time 39 minutes Justifications for Admission Other Justification CRISTAL LOCK MD Apr 01, 2021 18:11
[2021-04-01] MEDS ORDERED: MORPHINE SULFATE 4 MG/ML INJ. IM ONE (18:15)
[2021-04-01] MEDS ORDERED: DEXTROSE 50% 25 GM / 50ML DISP.SYRIN. IV PRN (18:15)
[2021-04-01] MEDS ORDERED: ATROPINE 0.5 MG/5 ML DISP.SYRINGE. IV PRN (18:15)
[2021-04-01] MEDS ORDERED: IV NORMAL SALINE 500ML BAG 500 ML IV PRN (18:15)
[2021-04-01] MEDS: INSULIN LISPRO 300 UNITS/3 ML VIAL. SQ SCH (18:30)
[2021-04-01 19:00] VITALS: BP_SYST 106; BP_SYST 126; BP_DIAS 68; BP_DIAS 73
[2021-04-01] MEDS ORDERED: VANCOMYCIN 1.75 GM in IV NORMAL SALINE 500ML BAG 500 ML IV ONE (19:00)
--- NOTE | 2021-04-01 19:00 | NUR ---
1800 received patient from Ed hooked up to bi-pap 90% fio2 with RATE OF 20 I 18/E 6 patient resp. rate 60 mottled all over cool extremities, patient wishes not to be intubated no cpr -DNR order Dr. Deleon, patient called with update conveyed patience wishes-states he will inform daughter, will continue do every thing else, on heparin gtt 16 unit KG hr NS 125. 2nd IV inserted left arm, iv on R ac swollen , fluids changed to left arm anesthia placing new IV
[2021-04-01] MEDS: POTASSIUM CHLORIDE 10MEQ 100 ML IV SCH ×2 (19:59→20:58)
[2021-04-01 20:00] VITALS: BP 110/60
[2021-04-01] MEDS: VANCOMYCIN PER PHARMACY MC PRN (20:15)
--- NOTE | 2021-04-01 20:17 | NUR ---
Pharmacy Vancomycin Dosing Note S: Consulted to monitor and dose vancomycin started 04/01/21. O: JOHNATHON CHAWLA is a 75 year old F with Sepsis Other Antibiotics: LEVAQUIN LABS: Last BUN: 48 Last Creatinine: 2.7 Creatinine Clearance: 18 mL/min Last WBC: 12.8 Tmax (past 24 hours): 100.3 Vancomycin Dosing: Dosing Weight: Actual Target Trough: 10-20 A: Based on: VANCO dosing guidelines P: 1. Begin Vancomycin 1750mg LOAD dose, then 1250 mg IV q48h 2. Follow up Trough level on 04/05/21 at 1930 3. Pharmacy will continue to monitor, follow and adjust therapy as needed. TERI OLIVEROS [facility], 04/01/21 2017
[2021-04-01 21:00] VITALS: BP 138/75
[2021-04-01 22:00] VITALS: BP 124/68
[2021-04-01] MEDS: INSULIN GLARGINE SYRINGE. SQ SCH (22:37)
[2021-04-01 23:00] VITALS: BP 141/88
[2021-04-02] VITALS (22 sets, daily range): BP systolic 66–230; BP diastolic 48–165
[2021-04-02 04:35] LABS: BASO % 0 % (0-3); EOS % 0 % (0-3); HEMATOCRIT 38.9 % (36.0-47.0); LYMPH # 0.6 x10^3/uL (1.0-4.8); LYMPH % 4 % (24-48); MEAN CORPUSCULAR HEMOGLOBIN 28 pg (25-35); MEAN CORPUSCULAR HGB CONC 33 g/dL (31-37); MEAN CORPUSCULAR VOLUME 85 fL (79-100); MONO # 0.6 x10^3/uL (0.0-1.1); MONO % 4 % (0-9); NEUT # 13.9 x10^3/uL (1.8-7.7); NEUT % 92 % (31-73); PLATELET COUNT 180 x10^3/uL (140-400); RED BLOOD COUNT 4.57 x10^6/uL (3.50-5.40); RED CELL DISTRIBUTION WIDTH 15.1 % (11.5-14.5); WHITE BLOOD COUNT 15.1 x10^3/uL (4.0-11.0)
[2021-04-02 04:48] LABS: ALBUMIN 1.8 g/dL (3.4-5.0); ALBUMIN/GLOBULIN RATIO 0.5 (1.0-1.7); CREATININE 2.9 mg/dL (0.6-1.0); GFR 15.8; TOTAL BILIRUBIN 0.5 mg/dL (0.2-1.0); TOTAL PROTEIN 5.6 g/dL (6.4-8.2)
[2021-04-02 04:49] LABS: POTASSIUM 2.8 mmol/L (3.5-5.1)
[2021-04-02 05:04] LABS: % BANDS 14 % (0-9); % LYMPHS 4 % (24-48); % METAS 1 % (0-0); % MONOS 1 % (0-10); % SEGS 80 % (35-66); PLT ESTIMATE ADEQUATE (ADEQUATE)
[2021-04-02] MEDS: POTASSIUM CHLORIDE 10MEQ 100 ML IV SCH ×8 (05:17→12:22)
[2021-04-02] MEDS: VANCOMYCIN PER PHARMACY MC PRN (07:26)
[2021-04-02] MEDS: HEPARIN 25,000UTS/250ML PREMIX 250 ML IV PRN (07:28)
--- NOTE | 2021-04-02 07:48 | PDOC ---
PULMONARY PROGRESS NOTES DATE: 04/02/21 TIME: 07:47 Vitals Vital Signs Date Time Temp Pulse Resp B/P (MAP) Pulse Ox O2 Delivery O2 Flow Rate FiO2 04/02/21 06:00 101 29 102/58 (73) 99 BiPAP/CPAP 04/02/21 04:00 97.8 97.8 04/01/21 18:26 15.0 Labs Laboratory Tests Test 04/01/21 11:59 04/01/21 12:24 04/01/21 15:22 04/01/21 18:28 White Blood Count 12.8 x10^3/uL (4.0-11.0) Red Blood Count 5.79 x10^6/uL (3.50-5.40) Hemoglobin 16.3 g/dL (12.0-15.5) Hematocrit 48.8 % (36.0-47.0) Mean Corpuscular Volume 84 fL (79-100) Mean Corpuscular Hemoglobin 28 pg (25-35) Mean Corpuscular Hemoglobin Concent 33 g/dL (31-37) Red Cell Distribution Width 14.9 % (11.5-14.5) Platelet Count 320 x10^3/uL (140-400) Neutrophils (%) (Auto) 83 % (31-73) Lymphocytes (%) (Auto) 8 % (24-48) Monocytes (%) (Auto) 8 % (0-9) Eosinophils (%) (Auto) 0 % (0-3) Basophils (%) (Auto) 0 % (0-3) Neutrophils # (Auto) 10.7 x10^3/uL (1.8-7.7) Lymphocytes # (Auto) 1.1 x10^3/uL (1.0-4.8) Monocytes # (Auto) 1.0 x10^3/uL (0.0-1.1) Eosinophils # (Auto) 0.0 x10^3/uL (0.0-0.7) Basophils # (Auto) 0.1 x10^3/uL (0.0-0.2) Prothrombin Time 13.5 SEC (11.7-14.0) Prothromb Time International Ratio 1.0 (0.8-1.1) Activated Partial Thromboplast Time 30 SEC (24-38) D-Dimer (Myranda) 2.96 ug/mlFEU (0.00-0.50) Sodium Level 137 mmol/L (136-145) Potassium Level 3.3 mmol/L (3.5-5.1) Chloride Level 94 mmol/L (98-107) Carbon Dioxide Level 14 mmol/L (21-32) Anion Gap 29 (6-14) Blood Urea Nitrogen 48 mg/dL (7-20) Creatinine 2.7 mg/dL (0.6-1.0) Estimated GFR (Cockcroft-Gault) 17.2 BUN/Creatinine Ratio 18 (6-20) Glucose Level 224 mg/dL (70-99) Lactic Acid Level 6.9 mmol/L (0.4-2.0) 3.6 mmol/L (0.4-2.0) Calcium Level 9.3 mg/dL (8.5-10.1) Total Bilirubin 0.7 mg/dL (0.2-1.0) Aspartate Amino Transf (AST/SGOT) 91 U/L (15-37) Alanine Aminotransferase (ALT/SGPT) 49 U/L (14-59) Alkaline Phosphatase 128 U/L (46-116) Troponin I Quantitative 1.579 ng/mL (0.000-0.055) 1.234 ng/mL (0.000-0.055) ID-Lfk-X-Type Natriuretic Peptide > 87407 pg/mL (0-449) Total Protein 7.5 g/dL (6.4-8.2) Albumin 3.1 g/dL (3.4-5.0) Albumin/Globulin Ratio 0.7 (1.0-1.7) Urine Collection Type U cath Urine Color Mora Urine Clarity Cloudy Urine pH 6.0 (<5.0-8.0) Urine Specific [place] 1.020 (1.000-1.030) Urine Protein >=300 mg/dL (NEG-TRACE) Urine Glucose (UA) Negative mg/dL (NEG) Urine Ketones (Stick) Negative mg/dL (NEG) Urine Blood Trace (NEG) Urine Nitrite Negative (NEG) Urine Bilirubin Negative (NEG) Urine Urobilinogen Dipstick 0.2 mg/dL (0.2 mg/dL) Urine Leukocyte Esterase Negative (NEG) Urine RBC 3-5 /HPF (0-2) Urine WBC 1-4 /HPF (0-4) Urine Squamous Epithelial Cells Many /LPF Urine Amorphous Sediment Present /HPF Urine Bacteria 0 /HPF (0-FEW) Glucose (Fingerstick) 132 mg/dL (70-99) Test 04/01/21 19:40 04/02/21 04:15 Heparin Anti-Xa Act, Unfractionated 0.89 IU/mL (0.30-0.70) > 1.10 IU/mL (0.30-0.70) Lactic Acid Level 1.8 mmol/L (0.4-2.0) Troponin I Quantitative 1.446 ng/mL (0.000-0.055) White Blood Count 15.1 x10^3/uL (4.0-11.0) Red Blood Count 4.57 x10^6/uL (3.50-5.40) Hemoglobin 13.0 g/dL (12.0-15.5) Hematocrit 38.9 % (36.0-47.0) Mean Corpuscular Volume 85 fL (79-100) Mean Corpuscular Hemoglobin 28 pg (25-35) Mean Corpuscular Hemoglobin Concent 33 g/dL (31-37) Red Cell Distribution Width 15.1 % (11.5-14.5) Platelet Count 180 x10^3/uL (140-400) Neutrophils (%) (Auto) 92 % (31-73) Lymphocytes (%) (Auto) 4 % (24-48) Monocytes (%) (Auto) 4 % (0-9) Eosinophils (%) (Auto) 0 % (0-3) Basophils (%) (Auto) 0 % (0-3) Neutrophils # (Auto) 13.9 x10^3/uL (1.8-7.7) Lymphocytes # (Auto) 0.6 x10^3/uL (1.0-4.8) Monocytes # (Auto) 0.6 x10^3/uL (0.0-1.1) Eosinophils # (Auto) 0.0 x10^3/uL (0.0-0.7) Basophils # (Auto) 0.0 x10^3/uL (0.0-0.2) Segmented Neutrophils % 80 % (35-66) Band Neutrophils % 14 % (0-9) Lymphocytes % 4 % (24-48) Monocytes % 1 % (0-10) Metamyelocytes % 1 % (0-0) Platelet Estimate Adequate (ADEQUATE) Sodium Level 143 mmol/L (136-145) Potassium Level 2.8 mmol/L (3.5-5.1) Chloride Level 107 mmol/L (98-107) Carbon Dioxide Level 20 mmol/L (21-32) Anion Gap 16 (6-14) Blood Urea Nitrogen 55 mg/dL (7-20) Creatinine 2.9 mg/dL (0.6-1.0) Estimated GFR (Cockcroft-Gault) 15.8 BUN/Creatinine Ratio 19 (6-20) Glucose Level 112 mg/dL (70-99) Calcium Level 7.0 mg/dL (8.5-10.1) Total Bilirubin 0.5 mg/dL (0.2-1.0) Aspartate Amino Transf (AST/SGOT) 155 U/L (15-37) Alanine Aminotransferase (ALT/SGPT) 42 U/L (14-59) Alkaline Phosphatase 84 U/L (46-116) Total Protein 5.6 g/dL (6.4-8.2) Albumin 1.8 g/dL (3.4-5.0) Albumin/Globulin Ratio 0.5 (1.0-1.7) Procalcitonin 8.82 ng/mL (0.00-0.10) Laboratory Tests Test 04/01/21 11:59 04/01/21 12:24 04/01/21 15:22 04/01/21 18:28 White Blood Count 12.8 x10^3/uL (4.0-11.0) Red Blood Count 5.79 x10^6/uL (3.50-5.40) Hemoglobin 16.3 g/dL (12.0-15.5) Hematocrit 48.8 % (36.0-47.0) Mean Corpuscular Volume 84 fL (79-100) Mean Corpuscular Hemoglobin 28 pg (25-35) Mean Corpuscular Hemoglobin Concent 33 g/dL (31-37) Red Cell Distribution Width 14.9 % (11.5-14.5) Platelet Count 320 x10^3/uL (140-400) Neutrophils (%) (Auto) 83 % (31-73) Lymphocytes (%) (Auto) 8 % (24-48) Monocytes (%) (Auto) 8 % (0-9) Eosinophils (%) (Auto) 0 % (0-3) Basophils (%) (Auto) 0 % (0-3) Neutrophils # (Auto) 10.7 x10^3/uL (1.8-7.7) Lymphocytes # (Auto) 1.1 x10^3/uL (1.0-4.8) Monocytes # (Auto) 1.0 x10^3/uL (0.0-1.1) Eosinophils # (Auto) 0.0 x10^3/uL (0.0-0.7) Basophils # (Auto) 0.1 x10^3/uL (0.0-0.2) Prothrombin Time 13.5 SEC (11.7-14.0) Prothromb Time International Ratio 1.0 (0.8-1.1) Activated Partial Thromboplast Time 30 SEC (24-38) D-Dimer (Myranda) 2.96 ug/mlFEU (0.00-0.50) Sodium Level 137 mmol/L (136-145) Potassium Level 3.3 mmol/L (3.5-5.1) Chloride Level 94 mmol/L (98-107) Carbon Dioxide Level 14 mmol/L (21-32) Anion Gap 29 (6-14) Blood Urea Nitrogen 48 mg/dL (7-20) Creatinine 2.7 mg/dL (0.6-1.0) Estimated GFR (Cockcroft-Gault) 17.2 BUN/Creatinine Ratio 18 (6-20) Glucose Level 224 mg/dL (70-99) Lactic Acid Level 6.9 mmol/L (0.4-2.0) 3.6 mmol/L (0.4-2.0) Calcium Level 9.3 mg/dL (8.5-10.1) Total Bilirubin 0.7 mg/dL (0.2-1.0) Aspartate Amino Transf (AST/SGOT) 91 U/L (15-37) Alanine Aminotransferase (ALT/SGPT) 49 U/L (14-59) Alkaline Phosphatase 128 U/L (46-116) Troponin I Quantitative 1.579 ng/mL (0.000-0.055) 1.234 ng/mL (0.000-0.055) FV-Vcn-E-Type Natriuretic Peptide > 14329 pg/mL (0-449) Total Protein 7.5 g/dL (6.4-8.2) Albumin 3.1 g/dL (3.4-5.0) Albumin/Globulin Ratio 0.7 (1.0-1.7) Urine Collection Type U cath Urine Color [place]a Urine Clarity Cloudy Urine pH 6.0 (<5.0-8.0) Urine Specific [place] 1.020 (1.000-1.030) Urine Protein >=300 mg/dL (NEG-TRACE) Urine Glucose (UA) Negative mg/dL (NEG) Urine Ketones (Stick) Negative mg/dL (NEG) Urine Blood Trace (NEG) Urine Nitrite Negative (NEG) Urine Bilirubin Negative (NEG) Urine Urobilinogen Dipstick 0.2 mg/dL (0.2 mg/dL) Urine Leukocyte Esterase Negative (NEG) Urine RBC 3-5 /HPF (0-2) Urine WBC 1-4 /HPF (0-4) Urine Squamous Epithelial Cells Many /LPF Urine Amorphous Sediment Present /HPF Urine Bacteria 0 /HPF (0-FEW) Glucose (Fingerstick) 132 mg/dL (70-99) Test 04/01/21 19:40 04/02/21 04:15 Heparin Anti-Xa Act, Unfractionated 0.89 IU/mL (0.30-0.70) > 1.10 IU/mL (0.30-0.70) Lactic Acid Level 1.8 mmol/L (0.4-2.0) Troponin I Quantitative 1.446 ng/mL (0.000-0.055) White Blood Count 15.1 x10^3/uL (4.0-11.0) Red Blood Count 4.57 x10^6/uL (3.50-5.40) Hemoglobin 13.0 g/dL (12.0-15.5) Hematocrit 38.9 % (36.0-47.0) Mean Corpuscular Volume 85 fL (79-100) Mean Corpuscular Hemoglobin 28 pg (25-35) Mean Corpuscular Hemoglobin Concent 33 g/dL (31-37) Red Cell Distribution Width 15.1 % (11.5-14.5) Platelet Count 180 x10^3/uL (140-400) Neutrophils (%) (Auto) 92 % (31-73) Lymphocytes (%) (Auto) 4 % (24-48) Monocytes (%) (Auto) 4 % (0-9) Eosinophils (%) (Auto) 0 % (0-3) Basophils (%) (Auto) 0 % (0-3) Neutrophils # (Auto) 13.9 x10^3/uL (1.8-7.7) Lymphocytes # (Auto) 0.6 x10^3/uL (1.0-4.8) Monocytes # (Auto) 0.6 x10^3/uL (0.0-1.1) Eosinophils # (Auto) 0.0 x10^3/uL (0.0-0.7) Basophils # (Auto) 0.0 x10^3/uL (0.0-0.2) Segmented Neutrophils % 80 % (35-66) Band Neutrophils % 14 % (0-9) Lymphocytes % 4 % (24-48) Monocytes % 1 % (0-10) Metamyelocytes % 1 % (0-0) Platelet Estimate Adequate (ADEQUATE) Sodium Level 143 mmol/L (136-145) Potassium Level 2.8 mmol/L (3.5-5.1) Chloride Level 107 mmol/L (98-107) Carbon Dioxide Level 20 mmol/L (21-32) Anion Gap 16 (6-14) Blood Urea Nitrogen 55 mg/dL (7-20) Creatinine 2.9 mg/dL (0.6-1.0) Estimated GFR (Cockcroft-Gault) 15.8 BUN/Creatinine Ratio 19 (6-20) Glucose Level 112 mg/dL (70-99) Calcium Level 7.0 mg/dL (8.5-10.1) Total Bilirubin 0.5 mg/dL (0.2-1.0) Aspartate Amino Transf (AST/SGOT) 155 U/L (15-37) Alanine Aminotransferase (ALT/SGPT) 42 U/L (14-59) Alkaline Phosphatase 84 U/L (46-116) Total Protein 5.6 g/dL (6.4-8.2) Albumin 1.8 g/dL (3.4-5.0) Albumin/Globulin Ratio 0.5 (1.0-1.7) Procalcitonin 8.82 ng/mL (0.00-0.10) Medications Active Scripts Medications Dose Route/Sig Max Daily Dose Days Date Category Percocet 5-325 Mg Tablet (Oxycodone/Acetaminophen) 1 Each Tablet 1 Tab PO PRN Q4HRS PRN 12/03/18 Rx Proair Hfa (Albuterol Sulfate) 8.5 Gm Hfa.aer.ad 1 Puff INH PRN Q6HRS PRN 08/29/18 Reported Albuterol Sulfate Neb Soln (Albuterol Sulfate) 2.5 Mg/3 Ml Vial.neb 2.5 Mg NEB PRN QID PRN 08/29/18 Reported Compazine (Prochlorperazine Maleate) 10 Mg Tablet 10 Mg PO PRN BID PRN 08/29/18 Reported Gas-X (Simethicone) 125 Mg Capsule 125 Mg PO PRN DAILY PRN 08/29/18 Reported Ambien (Zolpidem Tartrate) 10 Mg Tablet 10 Mg PO PRN QHS PRN 08/29/18 Reported Cyclobenzaprine Hcl 10 Mg Tablet 10 Mg PO TID 08/29/18 Reported Lorazepam 0.5 Mg Tablet 0.5 Mg PO TID 08/29/18 Reported Vitamin C (Ascorbic Acid) 500 Mg Tablet 500 Mg PO DAILY 08/29/18 Reported Vitamin D2 (Ergocalciferol (Vitamin D2)) 50,000 Unit Capsule 50,000 Unit PO WEEKLY 08/29/18 Reported Stool Softener (Docusate Sodium) 50 Mg Capsule 50 Mg PO DAILY 08/29/18 Reported Dicyclomine Hcl 10 Mg Capsule 10 Mg PO PRN QID PRN 08/29/18 Reported Probiotic (Lactobacillus Combo No.10) 1 Each Capsule 1 Each PO DAILY 08/29/18 Reported Zantac (Ranitidine Hcl) 150 Mg Tablet 150 Mg PO PRN BID PRN 08/29/18 Reported Breo Ellipta 200-25 Mcg INH (Fluticasone/Vilanterol) 1 Each Blst.w.dev 1 Puff IH DAILY 08/29/18 Reported Estradiol 2 Mg Tablet 2 Mg PO DAILY 08/29/18 Reported Triamterene-Hctz 37.5-25 Mg Tb (Triamterene/Hydrochlorothiazid) 1 Each Tablet 1 Tab PO DAILY 08/29/18 Reported Levothyroxine Sodium 75 Mcg Tablet 75 Mcg PO DAILYAC 08/29/18 Reported Potassium Chloride 10 Meq Tablet.er 10 Meq PO DAILY 08/29/18 Reported Vitamin B-12 (Cyanocobalamin (Vitamin B-12)) 1,000 Mcg Tablet 1,000 Mcg PO DAILY 08/29/18 Reported Calcium (Calcium Carbonate) 600 Mg Tablet 600 Mg PO DAILY 08/29/18 Reported Impression . Full note dictated Acute hypoxemic respiratory failure multifactorial Sepsis COVID-19 viral pneumonia ARDS Right upper lobe nodule Non-ST segment elevation CA Leukocytosis Hypokalemia Malnutrition plan see orders Check MRSA screen ROCIO LEONG MD Apr 02, 2021 07:48
[2021-04-02] MEDS: INSULIN LISPRO 300 UNITS/3 ML VIAL. SQ SCH ×3 (08:00→17:00)
--- NOTE | 2021-04-02 08:42 | CONS ---
DATE OF CONSULTATION: 04/02/2021 ATTENDING PHYSICIAN: Lis Deleon MD REASON FOR CONSULTATION: The patient is seen in pulmonary consultation at the request of Dr. Deleon for acute respiratory failure secondary to COVID-19 viral pneumonia. HISTORY OF PRESENT ILLNESS: The patient is a 75-year-old non-vaccinated that presented to the Emergency Room with increasing shortness of breath. She had O2 saturations of 82% on room air. She was placed on nonrebreather, diagnosed with COVID-19 approximately a week ago. The patient is currently in the intensive care unit on BiPAP. She shakes her head no to smoking. She shakes her head yes to asthma. She presented with the above. Her labs were reviewed. White count was initially elevated, hemoglobin and hematocrit were elevated. This morning, her white count is 15.1, hemoglobin and hematocrit come down with some hydration. Her BUN and creatinine were likewise elevated upon admission at 48 and 2.7 and potassium was low. This morning, potassium continues to be low. Her albumin was low. Liver chemistries, AST was elevated. Lactic acid level initially elevated. Troponin was markedly elevated. BNP was elevated. I reviewed her CT chest which revealed some infiltrates, mainly on the right. She also had a right middle lung nodule in the right upper lobe. PAST MEDICAL HISTORY: Otherwise remarkable for previous tonsillectomy. She has had lumbar stenosis, previous sleep apnea, COPD, uses CPAP at home. There is also a history of reflux. She has had breast implants ruptured in the past, fibroids of the uterus, fibromyalgia, arthritis, hypothyroidism. She has some anxiety issues. FAMILY HISTORY: Noncontributory. ALLERGIES: LISTED TO CONTRAST MEDIA, PENICILLIN, SULFA, AZITHROMYCIN, AND DOXYCYCLINE. REVIEW OF SYSTEMS: Unobtainable secondary to the patient's condition. PHYSICAL EXAMINATION: VITAL SIGNS: Since admission, she has been afebrile, blood pressure 143/78, heart rate has been in the 100-110. HEENT: Eyes, the sclerae are nonicteric. NECK: Jugular venous distention could not be assessed secondary to body habitus. CHEST: Full expansion. LUNGS: Adequate flow with no wheezes anteriorly. CARDIOVASCULAR: Regular rate and rhythm with S1, S2, no S3. ABDOMEN: Soft, nontender. EXTREMITIES: No clubbing, cyanosis. Minimal edema. NEUROLOGIC: The patient was awake, alert, following commands. A detailed neuro exam was not performed. MAR was reviewed. She is currently on heparin drip. She is receiving levofloxacin, potassium supplement. She is on vancomycin, dexamethasone. CT reviewed. Labs were reviewed as indicated above. IMPRESSION: 1. Acute hypoxemic respiratory failure, multifactorial. 2. COVID-19 viral pneumonia, sepsis. 3. Sepsis related to viral pneumonia, possibly bacterial pneumonia. 4. Elevated troponin, suspect demand ischemia, possibly non-ST segment elevation myocardial infarction. 5. Hypokalemia. 6. Metabolic acidosis, multifactorial. 7. Acute kidney injury secondary to sepsis and dehydration. 8. Leukocytosis. 9. Hypokalemia. 10. Protein malnutrition, present upon admission. 11. Right upper lobe nodule. 12. Questionable chronic obstructive pulmonary disease. PLAN: 1. Continue current support with IV steroids and BiPAP. 2. Noted the patient is a do not resuscitate candidate. Currently, she is doing well on BiPAP. 3. Out of range for benefits of remdesivir. 4. Follow Cardiology input. 5. Replace potassium. 6. Continue IV hydration. 7. Empiric antibiotics. 8. Check nasal MRSA screen. 9. Monitor chest x-ray. 10. Follow up pulmonary nodules on outpatient. I do appreciate the privilege in sharing in the patient's care. Total cumulative critical care time of 60 minutes, interviewing and examining the patient, reviewing the current documentation, imaging studies, formulating the impression and plan. TERENCE/RAFAEL/DOMINIQUE DR: Netta TID: [id number]
[2021-04-02] MEDS ORDERED: DEXAMETHASONE SOD PHOS 4 MG/ML VIAL IVP SCH (09:00)
[2021-04-02 09:35] LABS: BASE EXCESS ABG -9 mmol/L (-3-3); HCO3 ABG 14 mmol/L (21-28); PCO2 ABG 23 mmHg (35-46); PO2 ABG 163 mmHg (65-108); SAT O2 ABG 99 % (92-99)
[2021-04-02] MEDS: DEXMEDETOMIDINE 400 MCG in IV NORMAL SALINE 100ML 96 ML IV PRN ×3 (10:19→22:18)
--- NOTE | 2021-04-02 10:50 | PDOC ---
[employer] PROGRESS NOTE Date of Service DOS: DATE: 04/02/21 TIME: 10:18 Chief Complaint Chief Complaint A/P: Acute hypoxic respiratory failure - likely covid 19 with superimposed bacterial pneumonia COVID-19 viral pneumonia Sepsis related to viral pneumonia, possibly bacterial pneumonia - remdesivir, s teroids, levaquin, vancomycin. IVF weight based NSTEMI - likely demand ischemia due to sepsis Hypokalemia - on IV replacement Metabolic acidosis, multifactorial. Acute kidney injury - vasomotor secondary to sepsis and dehydration. Protein malnutrition, present upon admission. Right upper lobe nodule. CARMINE - on home CPAP COPD - in history Obesity - increases morbidity Chronic pain - on hydrocodone 10mg QID prior to admission Anxiety with depression - on SSRI, prn ativan previously Hypothyroidism - on replacement FEN - NPO PPX - heparin CODE - DNR/DNI Dispo - ICU for severe sepsis and hypoxic respiratory failure related to COVID 19 History of Present Illness History of Present Illness Ms Coulter is a 75-year-old female with PMHx CARMINE on CPAP, COPD, GERD, fibromyalgia, anxiety, hypothyroidism who is non-vaccinated against COVID 19 who presented to the Emergency Room with increasing shortness of breath. She had O2 saturations of 82% on room air. She was placed on nonrebreather with O2 saturations 88% on 15 L. Tachypneic respiratory rate 50/min. Noted with mottling over her entire body. Tachycardic in the 120s. She told ED staff she was diagnosed with COVID-19 on 03/29/2021. Initial WBC 12.8, Hb 16.3, platelets 320, D-dimer 2.96, NA 137, K3.3, BUN 48, CR 2.7, glucose 224, AST 91, ALT 49, alk phos 128, albumin 1.8 troponin I 0.579, lactic acid 6.9, NT proBNP 35,000 CT chest which revealed some infiltrates R>L. She also had a right middle lung nodule in the right upper lobe. 04/02: Lactate down to 3.6 troponin up to 1.446, procalcitonin 8.2, K2.8, CR 2.9 BUN of 55. Albumin 1.8. On BiPAP 18/6 FiO2 100%. On heparin drip. levofloxacin renal dosed q48hr + vancomycin, dexamethasone. Remdesivir CC time 47 minutes Vitals/I&O Vitals/I&O: Vital Signs Date Time Temp Pulse Resp B/P (MAP) Pulse Ox O2 Delivery O2 Flow Rate FiO2 04/02/21 10:14 97 BiPAP/CPAP 04/02/21 06:00 101 29 102/58 (73) 04/02/21 04:00 97.8 97.8 04/01/21 18:26 15.0 I & O 04/01/21 04/01/21 04/02/21 15:00 23:00 07:00 Intake Total 1150 ml 1000 ml 1711.4 ml Output Total 40 ml 300 ml Balance 1150 ml 960 ml 1411.4 ml Physical Exam General: severe distress Extremities: No edema Labs Labs: Laboratory Tests Test 04/01/21 11:59 04/01/21 12:24 04/01/21 15:22 04/01/21 18:28 White Blood Count 12.8 x10^3/uL (4.0-11.0) Red Blood Count 5.79 x10^6/uL (3.50-5.40) Hemoglobin 16.3 g/dL (12.0-15.5) Hematocrit 48.8 % (36.0-47.0) Mean Corpuscular Volume 84 fL (79-100) Mean Corpuscular Hemoglobin 28 pg (25-35) Mean Corpuscular Hemoglobin Concent 33 g/dL (31-37) Red Cell Distribution Width 14.9 % (11.5-14.5) Platelet Count 320 x10^3/uL (140-400) Neutrophils (%) (Auto) 83 % (31-73) Lymphocytes (%) (Auto) 8 % (24-48) Monocytes (%) (Auto) 8 % (0-9) Eosinophils (%) (Auto) 0 % (0-3) Basophils (%) (Auto) 0 % (0-3) Neutrophils # (Auto) 10.7 x10^3/uL (1.8-7.7) Lymphocytes # (Auto) 1.1 x10^3/uL (1.0-4.8) Monocytes # (Auto) 1.0 x10^3/uL (0.0-1.1) Eosinophils # (Auto) 0.0 x10^3/uL (0.0-0.7) Basophils # (Auto) 0.1 x10^3/uL (0.0-0.2) Prothrombin Time 13.5 SEC (11.7-14.0) Prothromb Time International Ratio 1.0 (0.8-1.1) Activated Partial Thromboplast Time 30 SEC (24-38) D-Dimer (Myranda) 2.96 ug/mlFEU (0.00-0.50) Sodium Level 137 mmol/L (136-145) Potassium Level 3.3 mmol/L (3.5-5.1) Chloride Level 94 mmol/L (98-107) Carbon Dioxide Level 14 mmol/L (21-32) Anion Gap 29 (6-14) Blood Urea Nitrogen 48 mg/dL (7-20) Creatinine 2.7 mg/dL (0.6-1.0) Estimated GFR (Cockcroft-Gault) 17.2 BUN/Creatinine Ratio 18 (6-20) Glucose Level 224 mg/dL (70-99) Lactic Acid Level 6.9 mmol/L (0.4-2.0) 3.6 mmol/L (0.4-2.0) Calcium Level 9.3 mg/dL (8.5-10.1) Total Bilirubin 0.7 mg/dL (0.2-1.0) Aspartate Amino Transf (AST/SGOT) 91 U/L (15-37) Alanine Aminotransferase (ALT/SGPT) 49 U/L (14-59) Alkaline Phosphatase 128 U/L (46-116) Troponin I Quantitative 1.579 ng/mL (0.000-0.055) 1.234 ng/mL (0.000-0.055) FW-Ajr-H-Type Natriuretic Peptide > 62037 pg/mL (0-449) Total Protein 7.5 g/dL (6.4-8.2) Albumin 3.1 g/dL (3.4-5.0) Albumin/Globulin Ratio 0.7 (1.0-1.7) Urine Collection Type U cath Urine Color Mora Urine Clarity Cloudy Urine pH 6.0 (<5.0-8.0) Urine Specific [place] 1.020 (1.000-1.030) Urine Protein >=300 mg/dL (NEG-TRACE) Urine Glucose (UA) Negative mg/dL (NEG) Urine Ketones (Stick) Negative mg/dL (NEG) Urine Blood Trace (NEG) Urine Nitrite Negative (NEG) Urine Bilirubin Negative (NEG) Urine Urobilinogen Dipstick 0.2 mg/dL (0.2 mg/dL) Urine Leukocyte Esterase Negative (NEG) Urine RBC 3-5 /HPF (0-2) Urine WBC 1-4 /HPF (0-4) Urine Squamous Epithelial Cells Many /LPF Urine Amorphous Sediment Present /HPF Urine Bacteria 0 /HPF (0-FEW) Glucose (Fingerstick) 132 mg/dL (70-99) Test 04/01/21 19:40 04/02/21 04:15 Heparin Anti-Xa Act, Unfractionated 0.89 IU/mL (0.30-0.70) > 1.10 IU/mL (0.30-0.70) Lactic Acid Level 1.8 mmol/L (0.4-2.0) Troponin I Quantitative 1.446 ng/mL (0.000-0.055) White Blood Count 15.1 x10^3/uL (4.0-11.0) Red Blood Count 4.57 x10^6/uL (3.50-5.40) Hemoglobin 13.0 g/dL (12.0-15.5) Hematocrit 38.9 % (36.0-47.0) Mean Corpuscular Volume 85 fL (79-100) Mean Corpuscular Hemoglobin 28 pg (25-35) Mean Corpuscular Hemoglobin Concent 33 g/dL (31-37) Red Cell Distribution Width 15.1 % (11.5-14.5) Platelet Count 180 x10^3/uL (140-400) Neutrophils (%) (Auto) 92 % (31-73) Lymphocytes (%) (Auto) 4 % (24-48) Monocytes (%) (Auto) 4 % (0-9) Eosinophils (%) (Auto) 0 % (0-3) Basophils (%) (Auto) 0 % (0-3) Neutrophils # (Auto) 13.9 x10^3/uL (1.8-7.7) Lymphocytes # (Auto) 0.6 x10^3/uL (1.0-4.8) Monocytes # (Auto) 0.6 x10^3/uL (0.0-1.1) Eosinophils # (Auto) 0.0 x10^3/uL (0.0-0.7) Basophils # (Auto) 0.0 x10^3/uL (0.0-0.2) Segmented Neutrophils % 80 % (35-66) Band Neutrophils % 14 % (0-9) Lymphocytes % 4 % (24-48) Monocytes % 1 % (0-10) Metamyelocytes % 1 % (0-0) Platelet Estimate Adequate (ADEQUATE) Sodium Level 143 mmol/L (136-145) Potassium Level 2.8 mmol/L (3.5-5.1) Chloride Level 107 mmol/L (98-107) Carbon Dioxide Level 20 mmol/L (21-32) Anion Gap 16 (6-14) Blood Urea Nitrogen 55 mg/dL (7-20) Creatinine 2.9 mg/dL (0.6-1.0) Estimated GFR (Cockcroft-Gault) 15.8 BUN/Creatinine Ratio 19 (6-20) Glucose Level 112 mg/dL (70-99) Calcium Level 7.0 mg/dL (8.5-10.1) Total Bilirubin 0.5 mg/dL (0.2-1.0) Aspartate Amino Transf (AST/SGOT) 155 U/L (15-37) Alanine Aminotransferase (ALT/SGPT) 42 U/L (14-59) Alkaline Phosphatase 84 U/L (46-116) Total Protein 5.6 g/dL (6.4-8.2) Albumin 1.8 g/dL (3.4-5.0) Albumin/Globulin Ratio 0.5 (1.0-1.7) Procalcitonin 8.82 ng/mL (0.00-0.10) Assessment and Plan Assessmemt and Plan Problems Medical Problems: (1) Pneumonia due to 2019 novel coronavirus Status: Acute Comment Review of Relevant I have reviewed the following items juan (where applicable) has been applied. Medications: Current Medications Medications (Trade) Dose Ordered Sig/Janie Route PRN Reason Start Time Stop Time Status Last Admin Dose Admin Sodium Chloride 1,000 ml @ 1,000 mls/hr 1X ONCE IV 04/01/21 11:30 04/01/21 12:29 DC 04/01/21 12:13 Dexamethasone Sodium Phosphate (Decadron) 10 mg 1X ONCE IVP 04/01/21 11:30 04/01/21 11:31 DC 04/01/21 12:11 Levofloxacin/ Dextrose 150 ml @ 100 mls/hr 1X ONCE IV 04/01/21 11:30 04/01/21 12:59 DC 04/01/21 12:12 Sodium Chloride 1,000 ml @ 1,000 mls/hr 1X ONCE IV 04/01/21 12:45 04/01/21 13:44 DC 04/01/21 13:19 Heparin Sodium/ Dextrose 250 ml @ 0 mls/hr CONT PRN IV PER PROTOCOL 04/01/21 12:45 04/02/21 07:28 Heparin Sodium (Porcine) (Heparin Sodium) 2,300 unit PRN Q6HRS PRN IV FOR UFH LEVEL LESS THAN 0.2 04/01/21 12:45 04/01/21 13:32 Sodium Chloride 1,000 ml @ 125 mls/hr Q8H IV 04/01/21 13:15 04/02/21 13:14 04/01/21 22:39 Morphine Sulfate (Morphine Sulfate) 4 mg 1X ONCE IM 04/01/21 18:15 04/01/21 18:16 DC 04/01/21 18:26 Dexamethasone Sodium Phosphate (Decadron) 10 mg DAILY IVP 04/02/21 09:00 04/02/21 08:54 Vancomycin HCl (Vanco Per Pharmacy) 1 each PRN DAILY PRN MC SEE COMMENTS 04/01/21 18:15 04/02/21 07:26 Insulin Glargine (Lantus Syringe) 10 unit QHS SQ 04/01/21 21:00 04/01/21 22:37 Potassium Chloride/Water 100 ml @ 100 mls/hr Q1H IV 04/01/21 19:00 04/01/21 20:59 DC 04/01/21 20:58 Vancomycin HCl 1.75 gm/Sodium Chloride 500 ml @ 250 mls/hr 1X ONCE IV 04/01/21 19:00 04/01/21 20:59 DC 04/01/21 20:00 Potassium Chloride/Water 100 ml @ 100 mls/hr Q1H IV 04/02/21 05:30 04/02/21 13:29 04/02/21 09:00 Images: Prominent interstitial markings throughout the left lung and to a lesser extent in the right lung are nonspecific and may represent interstitial pneumonia, atelectasis, and/or scarring. 9 mm right upper lobe nodule noted. According to the 2017 Fleischner Society Guidelines for Management of Incidental Pulmonary Nodules Detected on CT, for non-calcified solid nodules > 8 mm in diameter a follow up CT is recommended in 3 months. Alternatively, further evaluation with PET/CT and/or tissue sampling could also be considered. Mildly enlarged mediastinal lymph nodes are nonspecific. Mild emphysematous changes noted. Justifications for Admission Other Justification JENSEN PEREZ MD Apr 02, 2021 10:50
[2021-04-02] MEDS: MORPHINE SULFATE 4 MG/ML INJ. IV PRN ×4 (10:52→23:59)
[2021-04-02] MEDS ORDERED: REMDESIVIR LOAD in IV NORMAL SALINE 250ML TV IV ONE (11:00)
--- NOTE | 2021-04-02 11:45 | PDOC2 ---
CONSULT Date of Consult Date of Consult DATE: 04/02/21 TIME: 11:45 Reason for Consult Reason for Consult: Non-STEMI Referring Physician Referring Physician: Dr. Deleon Identification/Chief Complaint Chief Complaint Shortness of breath Source Source: Chart review, Patient History of Present Illness Reason for Visit: 75-year-old female with history of COPD was brought via EMS for progressive shortness of breath. She was found to be in acute respiratory failure and admitted for further management. She was apparently diagnosed with COVID-19 1 week ago and is unvaccinated. Cardiology has been consulted for elevated troponin level. She did not have any chest pain on presentation. Past Medical History Past Medical History COPD Hypertension Hypothyroidism Diabetes mellitus type 2 Past Surgical History Past Surgical History Back surgery Family History Family History Not contributory Current Problem List Problem List Problems Medical Problems: (1) Pneumonia due to 2019 novel coronavirus Status: Acute Current Medications Current Medications Current Medications Sodium Chloride 1,000 ml @ 1,000 mls/hr 1X ONCE IV Last administered on 04/01/21at 12:13; Start 04/01/21 at 11:30; Stop 04/01/21 at 12:29; Status DC Dexamethasone Sodium Phosphate (Decadron) 10 mg 1X ONCE IVP Last administered on 04/01/21at 12:11; Start 04/01/21 at 11:30; Stop 04/01/21 at 11:31; Status DC Levofloxacin/ Dextrose 150 ml @ 100 mls/hr 1X ONCE IV Last administered on 04/01/21at 12:12; Start 04/01/21 at 11:30; Stop 04/01/21 at 12:59; Status DC Sodium Chloride 1,000 ml @ 1,000 mls/hr 1X ONCE IV Last administered on 04/01/21at 13:19; Start 04/01/21 at 12:45; Stop 04/01/21 at 13:44; Status DC Heparin Sodium/ Dextrose 250 ml @ 0 mls/hr CONT PRN IV PER PROTOCOL Last administered on 04/02/21at 07:28; Start 04/01/21 at 12:45 Heparin Sodium (Porcine) (Heparin Sodium) 2,300 unit PRN Q6HRS PRN IV FOR UFH LEVEL LESS THAN 0.2 Last administered on 04/01/21at 13:32; Start 04/01/21 at 12:45 Heparin Sodium (Porcine) (Heparin Sodium) 1,150 unit PRN Q6HRS PRN IV FOR UFH LEVEL 0.2 - 0.29; Start 04/01/21 at 12:45 Ondansetron HCl (Zofran) 4 mg PRN Q8HRS PRN IVP NAUSEA/VOMITING; Start 04/01/21 at 13:15; Stop 04/02/21 at 13:14 Fentanyl Citrate (Fentanyl 2ml Vial) 50 mcg PRN Q1HR PRN IVP PAIN Last administered on 04/02/21at 10:18; Start 04/01/21 at 13:15; Stop 04/02/21 at 13:14 Sodium Chloride 1,000 ml @ 125 mls/hr Q8H IV Last administered on 04/01/21at 22:39; Start 04/01/21 at 13:15; Stop 04/02/21 at 13:14 Acetaminophen (Tylenol) 650 mg PRN Q4HRS PRN PO FEVER > 100.3'F; Start 04/01/21 at 13:15; Stop 04/02/21 at 13:14 Morphine Sulfate (Morphine Sulfate) 4 mg 1X ONCE IM Last administered on 04/01/21at 18:26; Start 04/01/21 at 18:15; Stop 04/01/21 at 18:16; Status DC Dexmedetomidine HCl 400 mcg/ Sodium Chloride 100 ml @ 0 mls/hr CONT PRN IV PER PROTOCOL Last administered on 04/02/21at 10:19; Start 04/01/21 at 18:15 Sodium Chloride 500 ml @ 500 mls/hr 1X PRN PRN IV SEE COMMENTS; Start 04/01/21 at 18:15 Atropine Sulfate (ATROPINE 0.5mg SYRINGE) 0.5 mg PRN Q5MIN PRN IV SEE COMMENTS; Start 04/01/21 at 18:15 Dexamethasone Sodium Phosphate (Decadron) 10 mg DAILY IVP Last administered on 04/02/21at 08:54; Start 04/02/21 at 09:00 Vancomycin HCl (Vanco Per Pharmacy) 1 each PRN DAILY PRN MC SEE COMMENTS Last administered on 04/02/21at 07:26; Start 04/01/21 at 18:15 Levofloxacin/ Dextrose 100 ml @ 100 mls/hr Q48H IV ; Start 04/03/21 at 13:00 Insulin Human Lispro (HumaLOG) 0-9 UNITS TIDWMEALS SQ ; Start 04/01/21 at 18:30 Dextrose (Dextrose 50%-Water Syringe) 12.5 gm PRN Q15MIN PRN IV SEE COMMENTS; Start 04/01/21 at 18:15 Insulin Glargine (Lantus Syringe) 10 unit QHS SQ Last administered on 04/01/21at 22:37; Start 04/01/21 at 21:00 Potassium Chloride/Water 100 ml @ 100 mls/hr Q1H IV Last administered on 04/01/21at 20:58; Start 04/01/21 at 19:00; Stop 04/01/21 at 20:59; Status DC Vancomycin HCl 1.75 gm/Sodium Chloride 500 ml @ 250 mls/hr 1X ONCE IV Last administered on 04/01/21at 20:00; Start 04/01/21 at 19:00; Stop 04/01/21 at 20:59; Status DC Vancomycin HCl 1.25 gm/Sodium Chloride 250 ml @ 167 mls/hr Q48H IV ; Start 04/03/21 at 20:00 Vancomycin HCl (Vancomycin Trough Level) 1 each 1X ONCE MC ; Start 04/05/21 at 19:30; Stop 04/05/21 at 19:31 Potassium Chloride/Water 100 ml @ 100 mls/hr Q1H IV Last administered on 04/02/21at 10:43; Start 04/02/21 at 05:30; Stop 04/02/21 at 13:29 Remdesivir 200 mg/ Sodium Chloride 210 ml @ 210 mls/hr 1X ONCE IV ; Start 04/02/21 at 11:00; Stop 04/02/21 at 11:59 Remdesivir 100 mg/ Sodium Chloride 230 ml @ 460 mls/hr Q24H IV ; Start 04/03/21 at 11:00; Stop 04/06/21 at 11:29 Morphine Sulfate (Morphine Sulfate) 4 mg PRN Q3HRS PRN IV PAIN Last a dministered on 04/02/21at 10:52; Start 04/02/21 at 10:45 Active Scripts Active Percocet 5-325 Mg Tablet (Oxycodone/Acetaminophen) 1 Each Tablet 1 Tab PO PRN Q4HRS PRN Reported Proair Hfa (Albuterol Sulfate) 8.5 Gm Hfa.aer.ad 1 Puff INH PRN Q6HRS PRN Albuterol Sulfate Neb Soln (Albuterol Sulfate) 2.5 Mg/3 Ml Vial.neb 2.5 Mg NEB PRN QID PRN Compazine (Prochlorperazine Maleate) 10 Mg Tablet 10 Mg PO PRN BID PRN Gas-X (Simethicone) 125 Mg Capsule 125 Mg PO PRN DAILY PRN Ambien (Zolpidem Tartrate) 10 Mg Tablet 10 Mg PO PRN QHS PRN Cyclobenzaprine Hcl 10 Mg Tablet 10 Mg PO TID Lorazepam 0.5 Mg Tablet 0.5 Mg PO TID Vitamin C (Ascorbic Acid) 500 Mg Tablet 500 Mg PO DAILY Vitamin D2 (Ergocalciferol (Vitamin D2)) 50,000 Unit Capsule 50,000 Unit PO WEEKLY Stool Softener (Docusate Sodium) 50 Mg Capsule 50 Mg PO DAILY Dicyclomine Hcl 10 Mg Capsule 10 Mg PO PRN QID PRN Probiotic (Lactobacillus Combo No.10) 1 Each Capsule 1 Each PO DAILY Zantac (Ranitidine Hcl) 150 Mg Tablet 150 Mg PO PRN BID PRN Breo Ellipta 200-25 Mcg INH (Fluticasone/Vilanterol) 1 Each Blst.w.dev 1 Puff IH DAILY Estradiol 2 Mg Tablet 2 Mg PO DAILY Triamterene-Hctz 37.5-25 Mg Tb (Triamterene/Hydrochlorothiazid) 1 Each Tablet 1 Tab PO DAILY Levothyroxine Sodium 75 Mcg Tablet 75 Mcg PO DAILYAC Potassium Chloride 10 Meq Tablet.er 10 Meq PO DAILY Vitamin B-12 (Cyanocobalamin (Vitamin B-12)) 1,000 Mcg Tablet 1,000 Mcg PO DAILY Calcium (Calcium Carbonate) 600 Mg Tablet 600 Mg PO DAILY Allergies Allergies: Coded Allergies: Penicillins (Verified Allergy, Intermediate, Unknown, 12/01/18) Sulfa (Sulfonamide Antibiotics) (Verified Allergy, Intermediate, Unknown, 12/01/18) azithromycin (Verified Allergy, Intermediate, Unknown, 12/01/18) Iodinated Contrast Media (Verified Adverse Reaction, Intermediate, Nausea and Vomiting, 12/01/18) doxycycline (Verified Adverse Reaction, Intermediate, Rash, 12/01/18) ROS Review of System Full review of systems cannot be obtained at this time since patient is on BiPAP Physical Exam General: mild distress Lungs: Other (Bilateral scattered crepitations) Heart: Regular rate Abdomen: Soft Vitals VITALS Vital Signs Date Time Temp Pulse Resp B/P (MAP) Pulse Ox O2 Delivery O2 Flow Rate FiO2 04/02/21 10:52 97 15.0 04/02/21 10:14 BiPAP/CPAP 04/02/21 06:00 101 29 102/58 (73) 04/02/21 04:00 97.8 97.8 Labs Labs Laboratory Tests Test 04/01/21 11:59 04/01/21 12:24 04/01/21 15:22 04/01/21 18:28 White Blood Count 12.8 x10^3/uL (4.0-11.0) Red Blood Count 5.79 x10^6/uL (3.50-5.40) Hemoglobin 16.3 g/dL (12.0-15.5) Hematocrit 48.8 % (36.0-47.0) Mean Corpuscular Volume 84 fL (79-100) Mean Corpuscular Hemoglobin 28 pg (25-35) Mean Corpuscular Hemoglobin Concent 33 g/dL (31-37) Red Cell Distribution Width 14.9 % (11.5-14.5) Platelet Count 320 x10^3/uL (140-400) Neutrophils (%) (Auto) 83 % (31-73) Lymphocytes (%) (Auto) 8 % (24-48) Monocytes (%) (Auto) 8 % (0-9) Eosinophils (%) (Auto) 0 % (0-3) Basophils (%) (Auto) 0 % (0-3) Neutrophils # (Auto) 10.7 x10^3/uL (1.8-7.7) Lymphocytes # (Auto) 1.1 x10^3/uL (1.0-4.8) Monocytes # (Auto) 1.0 x10^3/uL (0.0-1.1) Eosinophils # (Auto) 0.0 x10^3/uL (0.0-0.7) Basophils # (Auto) 0.1 x10^3/uL (0.0-0.2) Prothrombin Time 13.5 SEC (11.7-14.0) Prothromb Time International Ratio 1.0 (0.8-1.1) Activated Partial Thromboplast Time 30 SEC (24-38) D-Dimer (Myranda) 2.96 ug/mlFEU (0.00-0.50) Sodium Level 137 mmol/L (136-145) Potassium Level 3.3 mmol/L (3.5-5.1) Chloride Level 94 mmol/L (98-107) Carbon Dioxide Level 14 mmol/L (21-32) Anion Gap 29 (6-14) Blood Urea Nitrogen 48 mg/dL (7-20) Creatinine 2.7 mg/dL (0.6-1.0) Estimated GFR (Cockcroft-Gault) 17.2 BUN/Creatinine Ratio 18 (6-20) Glucose Level 224 mg/dL (70-99) Lactic Acid Level 6.9 mmol/L (0.4-2.0) 3.6 mmol/L (0.4-2.0) Calcium Level 9.3 mg/dL (8.5-10.1) Total Bilirubin 0.7 mg/dL (0.2-1.0) Aspartate Amino Transf (AST/SGOT) 91 U/L (15-37) Alanine Aminotransferase (ALT/SGPT) 49 U/L (14-59) Alkaline Phosphatase 128 U/L (46-116) Troponin I Quantitative 1.579 ng/mL (0.000-0.055) 1.234 ng/mL (0.000-0.055) SP-Mpz-P-Type Natriuretic Peptide > 79165 pg/mL (0-449) Total Protein 7.5 g/dL (6.4-8.2) Albumin 3.1 g/dL (3.4-5.0) Albumin/Globulin Ratio 0.7 (1.0-1.7) Urine Collection Type U cath Urine Color Mora Urine Clarity Cloudy Urine pH 6.0 (<5.0-8.0) Urine Specific [place] 1.020 (1.000-1.030) Urine Protein >=300 mg/dL (NEG-TRACE) Urine Glucose (UA) Negative mg/dL (NEG) Urine Ketones (Stick) Negative mg/dL (NEG) Urine Blood Trace (NEG) Urine Nitrite Negative (NEG) Urine Bilirubin Negative (NEG) Urine Urobilinogen Dipstick 0.2 mg/dL (0.2 mg/dL) Urine Leukocyte Esterase Negative (NEG) Urine RBC 3-5 /HPF (0-2) Urine WBC 1-4 /HPF (0-4) Urine Squamous Epithelial Cells Many /LPF Urine Amorphous Sediment Present /HPF Urine Bacteria 0 /HPF (0-FEW) Glucose (Fingerstick) 132 mg/dL (70-99) Test 04/01/21 19:40 04/02/21 04:15 Heparin Anti-Xa Act, Unfractionated 0.89 IU/mL (0.30-0.70) > 1.10 IU/mL (0.30-0.70) Lactic Acid Level 1.8 mmol/L (0.4-2.0) Troponin I Quantitative 1.446 ng/mL (0.000-0.055) White Blood Count 15.1 x10^3/uL (4.0-11.0) Red Blood Count 4.57 x10^6/uL (3.50-5.40) Hemoglobin 13.0 g/dL (12.0-15.5) Hematocrit 38.9 % (36.0-47.0) Mean Corpuscular Volume 85 fL (79-100) Mean Corpuscular Hemoglobin 28 pg (25-35) Mean Corpuscular Hemoglobin Concent 33 g/dL (31-37) Red Cell Distribution Width 15.1 % (11.5-14.5) Platelet Count 180 x10^3/uL (140-400) Neutrophils (%) (Auto) 92 % (31-73) Lymphocytes (%) (Auto) 4 % (24-48) Monocytes (%) (Auto) 4 % (0-9) Eosinophils (%) (Auto) 0 % (0-3) Basophils (%) (Auto) 0 % (0-3) Neutrophils # (Auto) 13.9 x10^3/uL (1.8-7.7) Lymphocytes # (Auto) 0.6 x10^3/uL (1.0-4.8) Monocytes # (Auto) 0.6 x10^3/uL (0.0-1.1) Eosinophils # (Auto) 0.0 x10^3/uL (0.0-0.7) Basophils # (Auto) 0.0 x10^3/uL (0.0-0.2) Segmented Neutrophils % 80 % (35-66) Band Neutrophils % 14 % (0-9) Lymphocytes % 4 % (24-48) Monocytes % 1 % (0-10) Metamyelocytes % 1 % (0-0) Platelet Estimate Adequate (ADEQUATE) Sodium Level 143 mmol/L (136-145) Potassium Level 2.8 mmol/L (3.5-5.1) Chloride Level 107 mmol/L (98-107) Carbon Dioxide Level 20 mmol/L (21-32) Anion Gap 16 (6-14) Blood Urea Nitrogen 55 mg/dL (7-20) Creatinine 2.9 mg/dL (0.6-1.0) Estimated GFR (Cockcroft-Gault) 15.8 BUN/Creatinine Ratio 19 (6-20) Glucose Level 112 mg/dL (70-99) Calcium Level 7.0 mg/dL (8.5-10.1) Total Bilirubin 0.5 mg/dL (0.2-1.0) Aspartate Amino Transf (AST/SGOT) 155 U/L (15-37) Alanine Aminotransferase (ALT/SGPT) 42 U/L (14-59) Alkaline Phosphatase 84 U/L (46-116) Total Protein 5.6 g/dL (6.4-8.2) Albumin 1.8 g/dL (3.4-5.0) Albumin/Globulin Ratio 0.5 (1.0-1.7) Procalcitonin 8.82 ng/mL (0.00-0.10) Laboratory Tests Test 04/01/21 11:59 04/01/21 12:24 04/01/21 15:22 04/01/21 18:28 White Blood Count 12.8 x10^3/uL (4.0-11.0) Red Blood Count 5.79 x10^6/uL (3.50-5.40) Hemoglobin 16.3 g/dL (12.0-15.5) Hematocrit 48.8 % (36.0-47.0) Mean Corpuscular Volume 84 fL (79-100) Mean Corpuscular Hemoglobin 28 pg (25-35) Mean Corpuscular Hemoglobin Concent 33 g/dL (31-37) Red Cell Distribution Width 14.9 % (11.5-14.5) Platelet Count 320 x10^3/uL (140-400) Neutrophils (%) (Auto) 83 % (31-73) Lymphocytes (%) (Auto) 8 % (24-48) Monocytes (%) (Auto) 8 % (0-9) Eosinophils (%) (Auto) 0 % (0-3) Basophils (%) (Auto) 0 % (0-3) Neutrophils # (Auto) 10.7 x10^3/uL (1.8-7.7) Lymphocytes # (Auto) 1.1 x10^3/uL (1.0-4.8) Monocytes # (Auto) 1.0 x10^3/uL (0.0-1.1) Eosinophils # (Auto) 0.0 x10^3/uL (0.0-0.7) Basophils # (Auto) 0.1 x10^3/uL (0.0-0.2) Prothrombin Time 13.5 SEC (11.7-14.0) Prothromb Time International Ratio 1.0 (0.8-1.1) Activated Partial Thromboplast Time 30 SEC (24-38) D-Dimer (Myranda) 2.96 ug/mlFEU (0.00-0.50) Sodium Level 137 mmol/L (136-145) Potassium Level 3.3 mmol/L (3.5-5.1) Chloride Level 94 mmol/L (98-107) Carbon Dioxide Level 14 mmol/L (21-32) Anion Gap 29 (6-14) Blood Urea Nitrogen 48 mg/dL (7-20) Creatinine 2.7 mg/dL (0.6-1.0) Estimated GFR (Cockcroft-Gault) 17.2 BUN/Creatinine Ratio 18 (6-20) Glucose Level 224 mg/dL (70-99) Lactic Acid Level 6.9 mmol/L (0.4-2.0) 3.6 mmol/L (0.4-2.0) Calcium Level 9.3 mg/dL (8.5-10.1) Total Bilirubin 0.7 mg/dL (0.2-1.0) Aspartate Amino Transf (AST/SGOT) 91 U/L (15-37) Alanine Aminotransferase (ALT/SGPT) 49 U/L (14-59) Alkaline Phosphatase 128 U/L (46-116) Troponin I Quantitative 1.579 ng/mL (0.000-0.055) 1.234 ng/mL (0.000-0.055) FS-Jbt-G-Type Natriuretic Peptide > 09587 pg/mL (0-449) Total Protein 7.5 g/dL (6.4-8.2) Albumin 3.1 g/dL (3.4-5.0) Albumin/Globulin Ratio 0.7 (1.0-1.7) Urine Collection Type U cath Urine Color Mora Urine Clarity Cloudy Urine pH 6.0 (<5.0-8.0) Urine Specific [place] 1.020 (1.000-1.030) Urine Protein >=300 mg/dL (NEG-TRACE) Urine Glucose (UA) Negative mg/dL (NEG) Urine Ketones (Stick) Negative mg/dL (NEG) Urine Blood Trace (NEG) Urine Nitrite Negative (NEG) Urine Bilirubin Negative (NEG) Urine Urobilinogen Dipstick 0.2 mg/dL (0.2 mg/dL) Urine Leukocyte Esterase Negative (NEG) Urine RBC 3-5 /HPF (0-2) Urine WBC 1-4 /HPF (0-4) Urine Squamous Epithelial Cells Many /LPF Urine Amorphous Sediment Present /HPF Urine Bacteria 0 /HPF (0-FEW) Glucose (Fingerstick) 132 mg/dL (70-99) Test 04/01/21 19:40 04/02/21 04:15 Heparin Anti-Xa Act, Unfractionated 0.89 IU/mL (0.30-0.70) > 1.10 IU/mL (0.30-0.70) Lactic Acid Level 1.8 mmol/L (0.4-2.0) Troponin I Quantitative 1.446 ng/mL (0.000-0.055) White Blood Count 15.1 x10^3/uL (4.0-11.0) Red Blood Count 4.57 x10^6/uL (3.50-5.40) Hemoglobin 13.0 g/dL (12.0-15.5) Hematocrit 38.9 % (36.0-47.0) Mean Corpuscular Volume 85 fL (79-100) Mean Corpuscular Hemoglobin 28 pg (25-35) Mean Corpuscular Hemoglobin Concent 33 g/dL (31-37) Red Cell Distribution Width 15.1 % (11.5-14.5) Platelet Count 180 x10^3/uL (140-400) Neutrophils (%) (Auto) 92 % (31-73) Lymphocytes (%) (Auto) 4 % (24-48) Monocytes (%) (Auto) 4 % (0-9) Eosinophils (%) (Auto) 0 % (0-3) Basophils (%) (Auto) 0 % (0-3) Neutrophils # (Auto) 13.9 x10^3/uL (1.8-7.7) Lymphocytes # (Auto) 0.6 x10^3/uL (1.0-4.8) Monocytes # (Auto) 0.6 x10^3/uL (0.0-1.1) Eosinophils # (Auto) 0.0 x10^3/uL (0.0-0.7) Basophils # (Auto) 0.0 x10^3/uL (0.0-0.2) Segmented Neutrophils % 80 % (35-66) Band Neutrophils % 14 % (0-9) Lymphocytes % 4 % (24-48) Monocytes % 1 % (0-10) Metamyelocytes % 1 % (0-0) Platelet Estimate Adequate (ADEQUATE) Sodium Level 143 mmol/L (136-145) Potassium Level 2.8 mmol/L (3.5-5.1) Chloride Level 107 mmol/L (98-107) Carbon Dioxide Level 20 mmol/L (21-32) Anion Gap 16 (6-14) Blood Urea Nitrogen 55 mg/dL (7-20) Creatinine 2.9 mg/dL (0.6-1.0) Estimated GFR (Cockcroft-Gault) 15.8 BUN/Creatinine Ratio 19 (6-20) Glucose Level 112 mg/dL (70-99) Calcium Level 7.0 mg/dL (8.5-10.1) Total Bilirubin 0.5 mg/dL (0.2-1.0) Aspartate Amino Transf (AST/SGOT) 155 U/L (15-37) Alanine Aminotransferase (ALT/SGPT) 42 U/L (14-59) Alkaline Phosphatase 84 U/L (46-116) Total Protein 5.6 g/dL (6.4-8.2) Albumin 1.8 g/dL (3.4-5.0) Albumin/Globulin Ratio 0.5 (1.0-1.7) Procalcitonin 8.82 ng/mL (0.00-0.10) Assessment/Plan Assessment/Plan 1. Acute hypoxic respiratory failure probably secondary to combination of Covid pneumonia and acute COPD exacerbation. Patient is presently on BiPAP. Pulmonary team following. Continue antibiotics, remdesivir and steroids. 2. Non-STEMI, most probably demand ischemia. Continue heparin infusion per protocol. Will consider 2D echo and ischemic evaluation once active issues resolve. 3. Hypothyroidism: On levothyroxine 4. Hypokalemia, metabolic acidosis, acute kidney injury: Per IM Thank you for your consultation SONAM DUNHAM MD Apr 02, 2021 11:45
[2021-04-02 14:01] LABS: D-DIMER 3.15 ug/mlFEU (0.00-0.50)
--- NOTE | 2021-04-02 14:01 | CONS ---
DATE OF CONSULTATION: 04/02/2021 REQUESTING PHYSICIAN: Hospitalist. REASON FOR CONSULTATION: Renal failure in the setting of COVID-19 infection. HISTORY OF PRESENT ILLNESS: A 75-year-old female who is unvaccinated for COVID-19 and now presents with COVID-19 infection and ensuing respiratory failure. She has history of COPD. She is currently developing worsening renal function and in this setting, Nephrology evaluation is requested. She has been evaluated by Pulmonary Medicine for ensuing respiratory failure. She is being evaluated by Cardiology for evidence of non-ST segment elevation myocardial infarction. PAST MEDICAL HISTORY: Obesity, COPD, obstructive sleep apnea and uses CPAP, lumbar stenosis, GE reflux disease, breast implants, uterine fibroids, fibromyalgia, degenerative arthritis, hypothyroidism, anxiety. ALLERGIES: IV CONTRAST DYE, IODINE, PENICILLIN, SULFA, AZITHROMYCIN, DOXYCYCLINE. MEDICATIONS: Reviewed per medication list. FAMILY HISTORY: Noncontributory for renal disease. SOCIAL HISTORY: The patient is , resides with , I believe, he as well has COVID-19. REVIEW OF SYSTEMS: Unobtainable due to the patient's acute condition. PHYSICAL EXAMINATION: GENERAL APPEARANCE: Acute and chronically ill. She has facemask in place. No edema. Otherwise per COVID-19 positive status. Bedside examination is not pursued. LABORATORY DATA: Sodium 143, potassium 2.8, chloride 107, CO2 20, BUN 55, creatinine 2.9. GFR 15.8. Hemoglobin 13, hematocrit 38.9, white count 15.1, platelets 180. Urinalysis, specific gravity 1.020, urine protein greater than 300 mg percent. IMPRESSION: Renal failure -- no baseline renal function available. May have an underlying chronic kidney disease. Certainly anticipate at least in part acute renal failure is likely secondary to reduced intravascular volume, i.e., dehydration in the setting of COVID-19 respiratory illness. She has a very high urine specific gravity. She has increased fluid losses based on increased respiratory demand. A CT without contrast reveals 9 mm solid nodule, right upper lobe. RECOMMENDATIONS: 1. Respiratory support. 2. Acute management of COVID-19 infection. 3. Follow fluid and electrolyte balance. 4. Current fluid status, electrolyte imbalance does not necessitate emergent dialysis. We will follow expectantly. FLORINA DR: [place] TID: [id number]
--- NOTE | 2021-04-02 15:50 | RAD ---
XR CHEST 1V INDICATION: Reason: RF / Spl. Instructions: / History: . COMPARISON STUDY: CT 04/01/2020. FINDINGS: Lungs: Normal lung volume. Stable left greater than right lung opacities. Pleura: No pleural effusion or pneumothorax. Heart and Mediastinum: Stable cardiomediastinal silhouette and great vessels. IMPRESSION: Stable left greater than right lung opacities. Electronically signed by: Pankaj Lou MD (04/02/2021 3:47 PM) [facility]
[2021-04-02] MEDS: IV NORMAL SALINE 1000ML BAG 1,000 ML IV SCH (19:43)
[2021-04-02] MEDS: INSULIN GLARGINE SYRINGE. SQ SCH (21:00)
--- NOTE | 2021-04-02 23:11 | NUR ---
Paged Dr. Easton, call returned. Updated on pt. condition including, unable to obtain BP, oliguria, O2 desaturations. Pt. is a DNR/DNI, continue current POC including providing comfort care for pt.
--- NOTE | 2021-04-02 23:18 | NUR ---
Notified Pt's , Tai, about pt's deteriorating condition. Discussed inability to obtain a BP, kidney failure, low oxygen sats on BIPAP. Discussed pt's failure to improve on BIPAP and verified pt's DNR/DNI status and confirms pt's wishes of not wanting to be intubated. This RN briefly discussed the option of adding further medications such as pressors vs comfort care only. Pt's stated that he wanted his as comfortable as possible. Pt's is covid positive so is unable to visit, but he states that he is going to call their daughter Phuong who is vaccinated to see if she would like to come up for an end-of-life visit.
--- NOTE | 2021-04-03 02:30 | NUR ---
Pt's daughter in to see pt for end of life visit. Pt is covid positive, so daughter is present at doorway to room. Plan of care explained to daughter. Questions answered at this time. Will contine to monitor.
--- NOTE | 2021-04-03 03:45 | NUR ---
Pt went asystole on the monitor. This was verified by this RN and by Victor M GAMBINO per this facility's protocol. Time of was called at 04/03/21 at 0333. Will call pt's .
[2021-04-03] MEDS ORDERED: REMDESIVIR 100mg in NORMAL SALINE 250ML X 4 DAYS IV SCH (11:00)
[2021-04-03] MEDS ORDERED: VANCOMYCIN 1.25 GM in IV NORMAL SALINE 250ML 250 ML IV SCH (20:00)
--- NOTE | 2021-04-04 11:50 | EKG ---
[facility] [address] [place] [address] Test Date: 2021-04-01 Test Time: 11:51:28 Pat Name: JOHNATHON CHAWLA Department: Room: Gender: F Electric Lineman: ] : 1945 Requested By: PHILL SINCLAIR Order Number: [id number] Reading MD: Measurements Intervals [place] Rate: 108 P: 90 DE: 128 QRS: -46 QRSD: 122 T: 132 QT: 352 QTc: 476 Interpretive Statements SINUS TACHYCARDIA VENTRICULAR PREMATURE COMPLEX(ES) ABNORMAL LEFT AXIS DEVIATION LVH WITH REPOLARIZATION ABNORMALITY ABNORMAL ECG RI6.02 No previous ECG available for comparison
--- NOTE | 2021-04-10 19:48 | PDOC3 ---
Discharge Summary Visit Information Date of Admission: Apr 01, 2021 Date of Discharge: Apr 03, 2021 Admitting Diagnosis: Pneumonia due to COVID 19 Final Diagnosis Problems Medical Problems: (1) Pneumonia due to 2019 novel coronavirus Status: Acute Brief Hospital Course Allergies Allergies Coded Allergies Type Severity Reaction Last Updated Verified Penicillins Allergy Intermediate Unknown 12/01/18 Yes Sulfa (Sulfonamide Antibiotics) Allergy Intermediate Unknown 12/01/18 Yes azithromycin Allergy Intermediate Unknown 12/01/18 Yes Iodinated Contrast Media Adverse Reaction Intermediate Nausea and Vomiting 12/01/18 Yes doxycycline Adverse Reaction Intermediate Rash 12/01/18 Yes Brief Hospital Course Ms Coulter is a 75-year-old female with PMHx CARMINE on CPAP, COPD, GERD, fibromyalgia, anxiety, hypothyroidism who is non-vaccinated against COVID 19 who presented to the Emergency Room with increasing shortness of breath. She had O2 saturations of 82% on room air. She was placed on nonrebreather with O2 sa turations 88% on 15 L. Tachypneic respiratory rate 50/min. Noted with mottling over her entire body. Tachycardic in the 120s. She told ED staff she was diagnosed with COVID-19 on 03/29/2021. Initial WBC 12.8, Hb 16.3, platelets 320, D-dimer 2.96, NA 137, K3.3, BUN 48, CR 2.7, glucose 224, AST 91, ALT 49, alk phos 128, albumin 1.8 troponin I 0.579, lactic acid 6.9, NT proBNP 35,000 CT chest which revealed some infiltrates R>L. She also had a right middle lung nodule in the right upper lobe. 04/02: Lactate down to 3.6 troponin up to 1.446, procalcitonin 8.2, K2.8, CR 2.9 BUN of 55. Albumin 1.8. On BiPAP 13/01 FiO2 100%. On heparin drip. levofloxacin renal dosed q48hr + vancomycin, dexamethasone. Remdesivir Despite aggressive measures patient continued to decline, family called and noted patient was DNR/DNI and wished for her to be comfortable and at 0333 noted with no spontaneous cardiac or respiratory activity on 04/03/2021 for time of 0333. Consults: Nephrology, Cardiology, Pulmonology Problem list: Acute hypoxic respiratory failure - likely covid 19 with superimposed bacterial pneumonia COVID-19 viral pneumonia Sepsis related to viral pneumonia, possibly bacterial pneumonia - remdesivir, steroids, levaquin, vancomycin. IVF weight based NSTEMI - likely demand ischemia due to sepsis Hypokalemia Metabolic acidosis, multifactorial. Acute kidney injury - vasomotor secondary to sepsis and dehydration. Protein malnutrition, present upon admission. Right upper lobe nodule. CARMINE - on home CPAP COPD - in history Obesity - increases morbidity Chronic pain - on hydrocodone 10mg QID prior to admission Anxiety with depression Hypothyroidism Less than 15 minutes spent on day of patient expiration Discharge Information Condition at Discharge: / Disposition/Orders: Scheduled Ascorbic Acid (Vitamin C) 500 Mg Tablet, 500 MG PO DAILY for SUPPLEMENT, (Reported) Entered as Reported by: PUSHPA GAGE on 08/29/18 1435 Calcium Carbonate (Calcium) 600 Mg Tablet, 600 MG PO DAILY for SUPPLEMENT, (Reported) Entered as Reported by: PUSHPA GAGE on 08/29/18 1416 Cyanocobalamin (Vitamin B-12) (Vitamin B-12) 1,000 Mcg Tablet, 1,000 MCG PO DAILY for SUPPLEMENT, (Reported) Entered as Reported by: PUSHPA GAGE on 08/29/18 1416 Cyclobenzaprine Hcl (Cyclobenzaprine Hcl) 10 Mg Tablet, 10 MG PO TID for MUSCLE SPASMS, (Reported) Entered as Reported by: PUSHPA GAGE on 08/29/18 1435 Docusate Sodium (Stool Softener) 50 Mg Capsule, 50 MG PO DAILY for PREVENT CONSTIPATION, (Reported) Entered as Reported by: PUSHPA GAGE on 08/29/18 1435 Ergocalciferol (Vitamin D2) (Vitamin D2) 50,000 Unit Capsule, 50,000 UNIT PO WEEKLY for SUPPLEMENT, (Reported) Entered as Reported by: PUSHPA GAGE on 08/29/18 1435 Estradiol (Estradiol) 2 Mg Tablet, 2 MG PO DAILY for HRT, (Reported) Entered as Reported by: PUSHPA GAGE on 08/29/18 1416 Fluticasone/Vilanterol (Breo Ellipta 200-25 Mcg INH) 1 Each Blst.w.dev, 1 PUFF IH DAILY for COPD, (Reported) Entered as Reported by: PUSHPA GAGE on 08/29/18 1435 Lactobacillus Combo No.10 (Probiotic) 1 Each Capsule, 1 EACH PO DAILY for SUPPLEMENT, (Reported) Entered as Reported by: PUSHPA GAGE on 08/29/18 1435 Levothyroxine Sodium (Levothyroxine Sodium) 75 Mcg Tablet, 75 MCG PO DAILYAC for THYROID SUPPLEMENT, #30 Ref 0 (Reported) Entered as Reported by: PUSHPA GAGE on 08/29/18 1416 Lorazepam (Lorazepam) 0.5 Mg Tablet, 0.5 MG PO TID for ANXIETY, (Reported) Entered as Reported by: PUSHPA GAGE on 08/29/18 1435 Potassium Chloride (Potassium Chloride) 10 Meq Tablet.er, 10 MEQ PO DAILY for K+ SUPPLEMENT, (Reported) Entered as Reported by: PUSHPA GAGE on 08/29/18 141 Triamterene/Hydrochlorothiazid (Triamterene-Hctz 37.5-25 Mg Tb) 1 Each Tablet, 1 TAB PO DAILY for BP CONTROL, (Reported) Entered as Reported by: PUSHPA GAGE on 08/29/18 1416 Scheduled PRN Albuterol Sulfate (Albuterol Sulfate Neb Soln) 2.5 Mg/3 Ml Vial.neb, 2.5 MG NEB PRN QID PRN for SHORTNESS OF BREATH, Ref 0 (Reported) Entered as Reported by: PUSHPA GAGE on 08/29/18 1435 Albuterol Sulfate (Proair Hfa) 8.5 Gm Hfa.aer.ad, 1 PUFF INH PRN Q6HRS PRN for SHORTNESS OF BREATH, (Reported) Entered as Reported by: PUSHPA GAGE on 08/29/18 1435 Dicyclomine Hcl (Dicyclomine Hcl) 10 Mg Capsule, 10 MG PO PRN QID PRN for NAUSEA, (Reported) Entered as Reported by: PUSHPA GAGE on 08/29/18 1435 Oxycodone/Apap 5-325 (Percocet 5-325 Mg Tablet ) 1 Each Tablet, 1 TAB PO PRN Q4HRS PRN for MILD PAIN, 1ST CHOICE, #40 Prescribed by: AUNDREA LAZARO on 12/03/18 1128 Prochlorperazine Maleate (Compazine) 10 Mg Tablet, 10 MG PO PRN BID PRN for NAUSEA, (Reported) Entered as Reported by: PUSHPA GAGE on 08/29/18 143 Ranitidine Hcl (Zantac) 150 Mg Tablet, 150 MG PO PRN BID PRN for SEE COMMENTS, (Reported) Entered as Reported by: PUSHPA GAGE on 08/29/18 143 Simethicone (Gas-X) 125 Mg Capsule, 125 MG PO PRN DAILY PRN for SEE COMMENTS, (Reported) Entered as Reported by: PUSHPA GAGE on 08/29/18 143 Zolpidem Tartrate (Ambien) 10 Mg Tablet, 10 MG PO PRN QHS PRN for INSOMNIA, Ref 0 (Reported) Entered as Reported by: PUSHPA GAGE on 08/29/18 143 Justicifation of Admission Dx: Justifications for Admission: Justification of Admission Dx: Yes Respiratory Failure: Severe Resp Distress JENSEN PEREZ MD Apr 10, 2021 19:48
== END 2021-04-03 03:33 | DRG 871 ==
LOC: ER 11:13 → ED HOLD 12:50 → 1 WEST ICU 13:47
PROVIDERS: ADMIT Internal Medicine; ATTEND Internal Medicine
PROC: 5A09457 Assistance with Respiratory Ventilation, 24-96 Consecutive Hours, Continuous Positive Airway Pressure (ICD-10-PCS; principal; 2021-04-01)
PROC: XW033E5 Introduction of Remdesivir Anti-infective into Peripheral Vein, Percutaneous Approach, New Technology Group 5 (ICD-10-PCS; 2021-04-02)
DX: A41.89 Other specified sepsis (principal); J96.01 Acute respiratory failure with hypoxia; U07.1 COVID-19; J12.82 Pneumonia due to coronavirus disease 2019; I21.A1 Myocardial infarction type 2; E46 Unspecified protein-calorie malnutrition; J44.0 Chronic obstructive pulmonary disease with (acute) lower respiratory infection; J44.1 Chronic obstructive pulmonary disease with (acute) exacerbation; N17.9 Acute kidney failure, unspecified; R65.20 Severe sepsis without septic shock; E03.9 Hypothyroidism, unspecified; E11.9 Type 2 diabetes mellitus without complications; E66.9 Obesity, unspecified; E86.0 Dehydration; E87.6 Hypokalemia; G47.33 Obstructive sleep apnea (adult) (pediatric); G89.29 Other chronic pain; I10 Essential (primary) hypertension; M79.7 Fibromyalgia; Z66 Do not resuscitate; Z87.891 Personal history of nicotine dependence; Z98.82 Breast implant status; F41.8 Other specified anxiety disorders; Z88.0 Allergy status to penicillin; Z88.2 Allergy status to sulfonamides; Z88.8 Allergy status to other drugs, medicaments and biological substances; Z68.30 Body mass index [BMI] 30.0-30.9, adult
CPT/HCPCS: 36415; 36569; 36600; 71045; 71250; 80053; 81001; 82805; 82962; 83605; 83880; 84132; 84145; 84484; 85007; 85025; 85379; 85384; 85520; 85610; 85730; 86140; 87040; 93005; 94660; 96361; 96365; 96375; 96376; J1100; J1644; J1815; J1956; J2270; J3010; J3370; J3480; J3490; J7030; J7040; J7050; 99285-25; G0378